=== PATIENT | male | born 1980 | race Caucasian/White ===

== ENCOUNTER 2017-08-31 21:34 | Emergency (ER) | payer BC ==
[2017-08-31] MEDS ORDERED: Sodium Chloride 0.9% 10 ML Syringe FLUSH PRN (21:49)
[2017-08-31] MEDS ORDERED: Ondansetron 4 MG/2 ML SDV IVPUSH ONE (22:05)
[2017-08-31] MEDS ORDERED: Pantoprazole 40 MG Vial IVPUSH ONE (22:05)
--- NOTE | 2017-08-31 22:10 | EDM.PDOC ---
ED HPI GENERAL MEDICAL PROBLEM - General Chief Complaint: General Stated Complaint: blood sugar concerns Time Seen by Provider: 08/31/17 21:36 Source of Information: Reports: Patient, RN, RN Notes Reviewed History Limitations: Reports: No Limitations - History of Present Illness INITIAL COMMENTS - FREE TEXT/NARRATIVE: Patient presents to the ED at [facility] with concerns of labile blood sugars. He states yesterday he started to feel nauseated and had several bouts of vomiting. He lasted vomited earlier today. He denies any headache of dizziness. He states he feels extreme "heartburn." Denies alcohol use. He has a history of drug abuse. Daily cigarette smoker. He states he is taking his insulins as directed but his blood sugars have ranged from 200's-400's in the last 24 hours. He states he is drinking a lot to keep hydrated. No abdominal pain. No focal neurological problems. He denies SOB or chest pain. Onset Date: 08/30/17 Generalized Pain Score (Numeric/FACES): 3 - Related Data Allergies Allergy/AdvReac Type Severity Reaction Status Date / Time cefaclor [From Ceclor] Allergy Other Verified 08/31/17 21:42 insulin detemir Allergy Itching Verified 05/05/17 00:02 [From Levemir] Penicillins Allergy Cannot Verified 05/05/17 00:02 Remember Home Meds: Home Meds Insulin Glarg,Human.Rec.Analog [LantUS Solostar] 30 units SUBCUT BEDTIME [History] Insulin Lispro [Humalog Kwikpen U-100] 10 - 12 unit SUBCUT TIDMEALS 04/16/17 [ History] Past Medical History HEENT History: Reports: Impaired Vision, Other (See Below) Other HEENT History: He wears glasses with no history of diabetic retinopathy Cardiovascular History: Reports: Heart Murmur, High Cholesterol, Other (See Below) Other Cardiovascular History: Hyperlipidemia currently diet controlled; previous history of unknown type of heart murmur secondary to previous illicit drug use Respiratory History: Reports: None Gastrointestinal History: Reports: Cholelithiasis, Gastritis, GERD, Other (See Below) Other Gastrointestinal History: Esophageal tear in 2001 secondary to illness and alcohol abuse with NG tube therapy and Port-A-Cath needed however no other surgical procedures Genitourinary History: Reports: Diabetic Nephropathy, Other (See Below) Other Genitourinary History: Proteinuria Musculoskeletal History: Reports: None Neurological History: Reports: None Psychiatric History: Reports: Addiction, Anxiety, Depression, Hallucinations, Psych Hospitalization(s), Other (See Below) Other Psychiatric History: Illicit drug abuse between ages 15 and 22 including cocaine, methamphetamine's, marijuana, etc. with additional alcohol abuse during those ages with previous inpatient treatment at age 22; previous medical therapy for anxiety depression disorder but no occasions or counseling at this time Endocrine/Metabolic History: Reports: Diabetes, Type I, IDDM, Other (See Below) Other Endocrine/Metabolic History: Type I IDDM initially diagnosed at age 7 Hematologic History: Reports: None Immunologic History: Reports: None Oncologic (Cancer) History: Reports: None Dermatologic History: Reports: Other (See Below) Other Dermatologic History: Acne vulgaris - Infectious Disease History Infectious Disease History: Reports: Chicken Pox, Mononucleosis - Past Surgical History Head Surgeries/Procedures: Reports: None HEENT Surgical History: Reports: None Cardiovascular Surgical History: Reports: None Respiratory Surgical History: Reports: None GI Surgical History: Reports: Cholecystectomy, EGD, Other (See Below) Other GI Surgeries/Procedures: Laparoscopic cholecystectomy in 2009 secondary to dysfunctional gallbladder from his diabetes; EGD secondary to esophageal tear in 2001 Male Surgical History: Reports: Circumcision, Other (See Below) Other Male Surgeries/Procedures: Circumcision as an infant Endocrine Surgical History: Reports: None Neurological Surgical History: Reports: None Musculoskeletal Surgical History: Reports: None Oncologic Surgical History: Reports: None Dermatological Surgical History: Reports: None Social & Family History - Tobacco Use Smoking Status *Q: Current Every Day Smoker Years of Tobacco use: 15 Packs/Tins Daily: 0.7 Second Hand Smoke Exposure: Yes - Caffeine Use Caffeine Use: Reports: Coffee (4-5 cups per day), Energy Drinks (1 can per week any). Denies: Soda, Tea - Alcohol Use Days Per Week of Alcohol Use: 0 (Previous history of alcohol abuse and treatment as above) Number of Drinks Per Day: 2 (Usually beer or mixed drinks) Total Drinks Per Week: 0 - Recreational Drug Use Recreational Drug Use: No Drug Use in Last 12 Months: Yes Recreational Drug Type: Reports: Amphetamines (Speed), Cocaine, Marijuana/ Hashish, Methamphetamine, Other (see below). Denies: Heroin, Inhalants (Glues, Solvents, Aerosols), LSD (Acid) Other Recreational Drug Type: Illicit drug use addiction and treatment as above with persistent marijuana use of one joint per day which he uses for his anxiety - Living Situation & Occupation Living situation: Reports: with Significant Other (With 2 children from this relationship), with Family Occupation: Employed ([employer]) ED ROS GENERAL - Review of Systems Review Of Systems: See Below Constitutional: Reports: Weakness, Fatigue. Denies: Fever, Chills Respiratory: Denies: Shortness of Breath, Cough Cardiovascular: Denies: Chest Pain, Palpitations Endocrine: Reports: Fatigue, High Glucose GI/Abdominal: Reports: Nausea, Vomiting. Denies: Abdominal Pain Skin: Reports: No Symptoms Neurological: Reports: No Symptoms. Denies: Dizziness, Headache ED EXAM, GENERAL - Physical Exam Exam: See Below Exam Limited By: No Limitations General Appearance: Alert, No Apparent Distress Respiratory/Chest: No Respiratory Distress, Lungs Clear, Normal Breath Sounds Cardiovascular: Normal Peripheral Pulses, Regular Rate, Rhythm Peripheral Pulses: 2+: Radial (L), Radial (R) GI/Abdominal: Normal Bowel Sounds, Soft, Non-Tender Extremities: Normal Inspection Neurological: Alert, Oriented Skin Exam: Warm, Dry, Intact, Normal Color EKG INTERPRETATION EKG Date: 08/31/17 Time: 21:53 Rhythm: NSR Rate (Beats/Min): 74 [place]: Normal P-Wave: Present QRS: Normal ST-T: Normal QT: Normal IN/PQ Interval: 0.15 Comparison: NA - No Prior EKG EKG Interpretation Comments: 1. Sinus Rhythm 2. Normal ECG Course - Vital Signs Last Recorded V/S: Last Vital Signs Temp 36.0 C 08/31/17 21:39 Pulse 99 08/31/17 21:39 Resp 16 08/31/17 21:39 BP 146/85 H 08/31/17 21:39 Pulse Ox 98 08/31/17 21:39 - Orders/Labs/Meds Orders: Active Orders 24 hr Category Date Time Status EKG 12 Lead [EKG Documentation Completion] [RC] STAT Care 08/31/17 21:46 Active B-HYDROXYBUTYRATE [REF] Stat Lab 08/31/17 22:02 Received CARBOXY-THC BY GC/MS Stat Lab 08/31/17 22:05 Received UA W/MICROSCOPIC [URIN] Stat Lab 08/31/17 21:55 Ordered Sodium Chloride 0.9% [Normal Saline] 2,000 ml Med 08/31/17 22:55 Active IV ONETIME Sodium Chloride 0.9% [Saline Flush] Med 08/31/17 21:49 Active 10 ml FLUSH ASDIRECTED PRN Peripheral IV Insertion Adult [OM.PC] Routine Oth 08/31/17 21:49 Ordered Medication Orders Sodium Chloride (Normal Saline) 2,000 mls @ 999 mls/hr IV ONETIME ONE Stop: 09/01/17 00:55 Last Admin: 08/31/17 23:00 Dose: 999 mls/hr Sodium Chloride (Saline Flush) 10 ml FLUSH ASDIRECTED PRN PRN Reason: Keep Vein Open Labs: Laboratory Tests 08/31/17 08/31/17 08/31/17 Range/Units 21:55 22:02 22:02 WBC 11.2 H (4.0-10.0) x10^3/uL RBC 4.48 L (4.5-6.0) x10^6/uL Hgb 14.3 (14.0-18.0) g/dL Hct 41.0 (40.0-52.0) % MCV 91.5 (78.0-93.0) fL MCH 31.9 (26.0-32.0) pg MCHC 34.9 (32.0-36.0) g/dL RDW Coeff of [place]vy 13.3 (10.0-15.0) % Plt Count 209 (130-400) x10^3/uL Neut % (Auto) 65.9 (50.0-80.0) % Lymph % (Auto) 20.6 L (25.0-50.0) % Mcleod % (Auto) 7.1 (2.0-11.0) % Eos % (Auto) 6.0 H (0.0-4.0) % Baso % (Auto) 0.4 (0.2-1.2) % VBG pH 7.37 (7.31-7.41) POC VBG pH (7.31-7.41) POC VBG pCO2 (41-51) POC VBG pO2 POC VBG HCO3 (23-28) POC VBG Total CO2 (24-29) POC VBG Base Excess ((-2) - 3) POC FiO2 POC Sodium (138-146) mmol/L Sodium (136-145) mmol/L POC Potassium (3.5-4.9) mmol/L Potassium (3.5-5.1) mmol/L POC Chloride (98-109) mmol/L Chloride (98-107) mmol/L Carbon Dioxide (21-32) mmol/L POC Total CO2 (24-29) mmol/L Anion Gap POC Anion Gap POC BUN (8-26) mg/dL BUN (7-18) mg/dL Creatinine (0.70-1.30) mg/dL POC Creatinine (0.6-1.3) mg/dL Est Cr Clr Drug Dosing Estimated GFR (MDRD) Glucose (74-106) mg/dL POC Glucose (70-105) mg/dL Hemoglobin A1c (4.5-6.2) % Lactic Acid (0.4-2.0) mmol/L Calcium (8.5-10.1) mg/dL Corrected Calcium (8.5-10.1) mg/dL Total Bilirubin (0.2-1.0) mg/dL AST (15-37) U/L ALT (16-63) U/L Alkaline Phosphatase (46-116) U/L POC Troponin I (0.00-0.08) ng/mL Total Protein (6.4-8.2) g/dL Albumin (3.4-5.0) g/dL Globulin Albumin/Globulin Ratio TSH, Ultra Sensitive (0.358-3.74) uIU/mL Urine Color Yellow (YELLOW) Urine Appearance Clear (CLEAR) Urine pH 5.5 (5.0-8.0) Ur Specific [place] >=1.030 Urine Protein >=300 H (NEGATIVE) mg/dL Urine Glucose (UA) 100 H (NEGATIVE) mg/dL Urine Ketones Negative (NEGATIVE) mg/dL Urine Occult Blood Negative (NEGATIVE) Urine Nitrite Negative (NEGATIVE) Urine Bilirubin Negative (NEGATIVE) Urine Urobilinogen 0.2 (0.2) EU/dL Ur Leukocyte Esterase Negative (NEGATIVE) Urine RBC 0-5 (NOT SEEN) /HPF Urine WBC 0-5 (NOT SEEN) /HPF Ur Squamous Epith Cells Not seen (NEGATIVE) /HPF Urine Bacteria Rare (NEGATIVE) /HPF Urine Mucus Rare H (NEGATIVE) /LPF Urine Opiates Screen (NEAGTIVE) Ur Buprenorphine Scrn (NEGATIVE) Ur Oxycodone Screen (NEGATIVE) Urine Methadone Screen (NEGATIVE) Ur Barbiturates Screen (NEGATIVE) Ur Tricyclics Screen (NEGATIVE) Ur Amphetamine Screen (NEGATIVE) U Methamphetamines Scrn (NEGATIVE) Urine MDMA Screen (NEGATIVE) U Benzodiazepines Scrn (NEGATIVE) U Cocaine Metab Screen (NEGATIVE) U Marijuana (THC) Screen (NEGATIVE) 08/31/17 08/31/17 08/31/17 Range/Units 22:02 22:02 22:02 WBC (4.0-10.0) x10^3/uL RBC (4.5-6.0) x10^6/uL Hgb (14.0-18.0) g/dL Hct (40.0-52.0) % MCV (78.0-93.0) fL MCH (26.0-32.0) pg MCHC (32.0-36.0) g/dL RDW Coeff of [place]vy (10.0-15.0) % Plt Count (130-400) x10^3/uL Neut % (Auto) (50.0-80.0) % Lymph % (Auto) (25.0-50.0) % Mcleod % (Auto) (2.0-11.0) % Eos % (Auto) (0.0-4.0) % Baso % (Auto) (0.2-1.2) % VBG pH (7.31-7.41) POC VBG pH (7.31-7.41) POC VBG pCO2 (41-51) POC VBG pO2 POC VBG HCO3 (23-28) POC VBG Total CO2 (24-29) POC VBG Base Excess ((-2) - 3) POC FiO2 POC Sodium (138-146) mmol/L Sodium 136 (136-145) mmol/L POC Potassium (3.5-4.9) mmol/L Potassium 4.2 (3.5-5.1) mmol/L POC Chloride (98-109) mmol/L Chloride 102 (98-107) mmol/L Carbon Dioxide 25 (21-32) mmol/L POC Total CO2 (24-29) mmol/L Anion Gap 13.2 POC Anion Gap POC BUN (8-26) mg/dL BUN 23 H (7-18) mg/dL Creatinine 1.0 (0.70-1.30) mg/dL POC Creatinine (0.6-1.3) mg/dL Est Cr Clr Drug Dosing TNP Estimated GFR (MDRD) > 60 Glucose 202 H (74-106) mg/dL POC Glucose (70-105) mg/dL Hemoglobin A1c 8.1 H (4.5-6.2) % Lactic Acid 0.7 (0.4-2.0) mmol/L Calcium 9.1 (8.5-10.1) mg/dL Corrected Calcium 9.58 (8.5-10.1) mg/dL Total Bilirubin 0.2 (0.2-1.0) mg/dL AST 20 (15-37) U/L ALT 24 (16-63) U/L Alkaline Phosphatase 69 (46-116) U/L POC Troponin I (0.00-0.08) ng/mL Total Protein 6.5 (6.4-8.2) g/dL Albumin 3.4 (3.4-5.0) g/dL Globulin 3.1 Albumin/Globulin Ratio 1.10 TSH, Ultra Sensitive 2.264 (0.358-3.74) uIU/mL Urine Color (YELLOW) Urine Appearance (CLEAR) Urine pH (5.0-8.0) Ur Specific [place] Urine Protein (NEGATIVE) mg/dL Urine Glucose (UA) (NEGATIVE) mg/dL Urine Ketones (NEGATIVE) mg/dL Urine Occult Blood (NEGATIVE) Urine Nitrite (NEGATIVE) Urine Bilirubin (NEGATIVE) Urine Urobilinogen (0.2) EU/dL Ur Leukocyte Esterase (NEGATIVE) Urine RBC (NOT SEEN) /HPF Urine WBC (NOT SEEN) /HPF Ur Squamous Epith Cells (NEGATIVE) /HPF Urine Bacteria (NEGATIVE) /HPF Urine Mucus (NEGATIVE) /LPF Urine Opiates Screen (NEAGTIVE) Ur Buprenorphine Scrn (NEGATIVE) Ur Oxycodone Screen (NEGATIVE) Urine Methadone Screen (NEGATIVE) Ur Barbiturates Screen (NEGATIVE) Ur Tricyclics Screen (NEGATIVE) Ur Amphetamine Screen (NEGATIVE) U Methamphetamines Scrn (NEGATIVE) Urine MDMA Screen (NEGATIVE) U Benzodiazepines Scrn (NEGATIVE) U Cocaine Metab Screen (NEGATIVE) U Marijuana (THC) Screen (NEGATIVE) 08/31/17 08/31/17 08/31/17 Range/Units 22:05 22:20 22:29 WBC (4.0-10.0) x10^3/uL RBC (4.5-6.0) x10^6/uL Hgb (14.0-18.0) g/dL Hct (40.0-52.0) % MCV (78.0-93.0) fL MCH (26.0-32.0) pg MCHC (32.0-36.0) g/dL RDW Coeff of [place] (10.0-15.0) % Plt Count (130-400) x10^3/uL Neut % (Auto) (50.0-80.0) % Lymph % (Auto) (25.0-50.0) % Mcleod % (Auto) (2.0-11.0) % Eos % (Auto) (0.0-4.0) % Baso % (Auto) (0.2-1.2) % VBG pH (7.31-7.41) POC VBG pH 7.37 (7.31-7.41) POC VBG pCO2 42 (41-51) POC VBG pO2 74 POC VBG HCO3 24 (23-28) POC VBG Total CO2 26 (24-29) POC VBG Base Excess -1 ((-2) - 3) POC FiO2 0.21 POC Sodium 134 L (138-146) mmol/L Sodium (136-145) mmol/L POC Potassium 4.0 (3.5-4.9) mmol/L Potassium (3.5-5.1) mmol/L POC Chloride 102 (98-109) mmol/L Chloride (98-107) mmol/L Carbon Dioxide (21-32) mmol/L POC Total CO2 23 L (24-29) mmol/L Anion Gap POC Anion Gap 14 POC BUN 24 (8-26) mg/dL BUN (7-18) mg/dL Creatinine (0.70-1.30) mg/dL POC Creatinine 0.9 (0.6-1.3) mg/dL Est Cr Clr Drug Dosing Estimated GFR (MDRD) Glucose (74-106) mg/dL POC Glucose 198 H (70-105) mg/dL Hemoglobin A1c (4.5-6.2) % Lactic Acid (0.4-2.0) mmol/L Calcium (8.5-10.1) mg/dL Corrected Calcium (8.5-10.1) mg/dL Total Bilirubin (0.2-1.0) mg/dL AST (15-37) U/L ALT (16-63) U/L Alkaline Phosphatase (46-116) U/L POC Troponin I (0.00-0.08) ng/mL Total Protein (6.4-8.2) g/dL Albumin (3.4-5.0) g/dL Globulin Albumin/Globulin Ratio TSH, Ultra Sensitive (0.358-3.74) uIU/mL Urine Color (YELLOW) Urine Appearance (CLEAR) Urine pH (5.0-8.0) Ur Specific [place] Urine Protein (NEGATIVE) mg/dL Urine Glucose (UA) (NEGATIVE) mg/dL Urine Ketones (NEGATIVE) mg/dL Urine Occult Blood (NEGATIVE) Urine Nitrite (NEGATIVE) Urine Bilirubin (NEGATIVE) Urine Urobilinogen (0.2) EU/dL Ur Leukocyte Esterase (NEGATIVE) Urine RBC (NOT SEEN) /HPF Urine WBC (NOT SEEN) /HPF Ur Squamous Epith Cells (NEGATIVE) /HPF Urine Bacteria (NEGATIVE) /HPF Urine Mucus (NEGATIVE) /LPF Urine Opiates Screen Negative (NEAGTIVE) Ur Buprenorphine Scrn Negative (NEGATIVE) Ur Oxycodone Screen Negative (NEGATIVE) Urine Methadone Screen Negative (NEGATIVE) Ur Barbiturates Screen Negative (NEGATIVE) Ur Tricyclics Screen Negative (NEGATIVE) Ur Amphetamine Screen Negative (NEGATIVE) U Methamphetamines Scrn Negative (NEGATIVE) Urine MDMA Screen Negative (NEGATIVE) U Benzodiazepines Scrn Negative (NEGATIVE) U Cocaine Metab Screen Negative (NEGATIVE) U Marijuana (THC) Screen Positive H (NEGATIVE) 08/31/17 Range/Units 22:34 WBC (4.0-10.0) x10^3/uL RBC (4.5-6.0) x10^6/uL Hgb (14.0-18.0) g/dL Hct (40.0-52.0) % MCV (78.0-93.0) fL MCH (26.0-32.0) pg MCHC (32.0-36.0) g/dL RDW Coeff of [place] (10.0-15.0) % Plt Count (130-400) x10^3/uL Neut % (Auto) (50.0-80.0) % Lymph % (Auto) (25.0-50.0) % [place] % (Auto) (2.0-11.0) % Eos % (Auto) (0.0-4.0) % Baso % (Auto) (0.2-1.2) % VBG pH (7.31-7.41) POC VBG pH (7.31-7.41) POC VBG pCO2 (41-51) POC VBG pO2 POC VBG HCO3 (23-28) POC VBG Total CO2 (24-29) POC VBG Base Excess ((-2) - 3) POC FiO2 POC Sodium (138-146) mmol/L Sodium (136-145) mmol/L POC Potassium (3.5-4.9) mmol/L Potassium (3.5-5.1) mmol/L POC Chloride (98-109) mmol/L Chloride (98-107) mmol/L Carbon Dioxide (21-32) mmol/L POC Total CO2 (24-29) mmol/L Anion Gap POC Anion Gap POC BUN (8-26) mg/dL BUN (7-18) mg/dL Creatinine (0.70-1.30) mg/dL POC Creatinine (0.6-1.3) mg/dL Est Cr Clr Drug Dosing Estimated GFR (MDRD) Glucose (74-106) mg/dL POC Glucose (70-105) mg/dL Hemoglobin A1c (4.5-6.2) % Lactic Acid (0.4-2.0) mmol/L Calcium (8.5-10.1) mg/dL Corrected Calcium (8.5-10.1) mg/dL Total Bilirubin (0.2-1.0) mg/dL AST (15-37) U/L ALT (16-63) U/L Alkaline Phosphatase (46-116) U/L POC Troponin I 0.00 (0.00-0.08) ng/mL Total Protein (6.4-8.2) g/dL Albumin (3.4-5.0) g/dL Globulin Albumin/Globulin Ratio TSH, Ultra Sensitive (0.358-3.74) uIU/mL Urine Color (YELLOW) Urine Appearance (CLEAR) Urine pH (5.0-8.0) Ur Specific [place] Urine Protein (NEGATIVE) mg/dL Urine Glucose (UA) (NEGATIVE) mg/dL Urine Ketones (NEGATIVE) mg/dL Urine Occult Blood (NEGATIVE) Urine Nitrite (NEGATIVE) Urine Bilirubin (NEGATIVE) Urine Urobilinogen (0.2) EU/dL Ur Leukocyte Esterase (NEGATIVE) Urine RBC (NOT SEEN) /HPF Urine WBC (NOT SEEN) /HPF Ur Squamous Epith Cells (NEGATIVE) /HPF Urine Bacteria (NEGATIVE) /HPF Urine Mucus (NEGATIVE) /LPF Urine Opiates Screen (NEAGTIVE) Ur Buprenorphine Scrn (NEGATIVE) Ur Oxycodone Screen (NEGATIVE) Urine Methadone Screen (NEGATIVE) Ur Barbiturates Screen (NEGATIVE) Ur Tricyclics Screen (NEGATIVE) Ur Amphetamine Screen (NEGATIVE) U Methamphetamines Scrn (NEGATIVE) Urine MDMA Screen (NEGATIVE) U Benzodiazepines Scrn (NEGATIVE) U Cocaine Metab Screen (NEGATIVE) U Marijuana (THC) Screen (NEGATIVE) Meds: Medications Generic Name Dose Route Start Last Admin Trade Name Freq PRN Reason Stop Dose Admin Sodium Chloride 2,000 mls @ 999 mls/hr 08/31/17 22:55 08/31/17 23:00 Normal Saline IV 09/01/17 00:55 999 mls/hr ONETIME ONE Administration Sodium Chloride 10 ml 08/31/17 21:49 Saline Flush FLUSH ASDIRECTED PRN Keep Vein Open Discontinued Medications Generic Name Dose Route Start Last Admin Trade Name Freq PRN Reason Stop Dose Admin Ondansetron HCl 4 mg 08/31/17 22:05 08/31/17 22:09 Zofran IVPUSH 08/31/17 22:06 4 mg ONETIME ONE Administration Pantoprazole Sodium 40 mg 08/31/17 22:05 08/31/17 22:11 Protonix Iv IVPUSH 08/31/17 22:06 40 mg ONETIME ONE Administration Departure - Departure Time of Disposition: 23:30 Disposition: Home, Self-Care 01 Condition: Good Clinical Impression: Elevated blood sugar Nausea & vomiting Qualifiers: Vomiting type: unspecified Vomiting Intractability: non-intractable Qualified Code(s): R11.2 - Nausea with vomiting, unspecified - Discharge Information Instructions: Nausea, Adult, Hyperglycemia Referrals: Sherly Gates VIDEO LIBRARY ASSISTANT [Primary Care Provider] - Forms: ED Department Discharge, ED Return to Work/School Form Additional Instructions: 1. Stay well hydrated and rest 2. No changes with your home medications is needed, continue the same doses 3. Take nausea medications as needed 4. See your Primary as symptoms warrant 5. Call us with any questions/concerns - Problem List Review Problem List Initiated/Reviewed/Updated: Yes - My Orders Last 24 Hours: My Active Orders 08/31/17 21:46 EKG 12 Lead [EKG Documentation Completion] [RC] STAT 08/31/17 21:49 Sodium Chloride 0.9% [Saline Flush] 10 ml FLUSH ASDIRECTED PRN Peripheral IV Insertion Adult [OM.PC] Routine 08/31/17 21:55 UA W/MICROSCOPIC [URIN] Stat 08/31/17 22:02 B-HYDROXYBUTYRATE [REF] Stat 08/31/17 22:05 CARBOXY-THC BY GC/MS Stat 08/31/17 22:55 Sodium Chloride 0.9% [Normal Saline] 2,000 ml IV ONETIME - Assessment/Plan Last 24 Hours: My Active Orders 08/31/17 21:46 EKG 12 Lead [EKG Documentation Completion] [RC] STAT 08/31/17 21:49 Sodium Chloride 0.9% [Saline Flush] 10 ml FLUSH ASDIRECTED PRN Peripheral IV Insertion Adult [OM.PC] Routine 08/31/17 21:55 UA W/MICROSCOPIC [URIN] Stat 08/31/17 22:02 B-HYDROXYBUTYRATE [REF] Stat 08/31/17 22:05 CARBOXY-THC BY GC/MS Stat 08/31/17 22:55 Sodium Chloride 0.9% [Normal Saline] 2,000 ml IV ONETIME Assessment:: Nausea and vomiting secondary to hyperglycemia Plan: Labs and tests discussed with patient. No acute emergency found. Recommend continuing same dosing with insulins without any changes. He needs to follow closely with his PCP. He needs to reschedule Endocrine appointment. Also recommend referral to DM educator. Patient verbalized understanding.
[2017-08-31 22:48] LABS: CHLORIDE,CL 102 mmol/L (98-107); SODIUM,NA 136 mmol/L (136-145)
[2017-08-31] MEDS ORDERED: Sodium Chloride 0.9% 2,000 ML IV ONE (22:55)
[2017-08-31] MEDS ORDERED: Take Home: Ondansetron 4 MG Tab.DIS, 2 Tab Pack PO ONE (23:33)
== END 2017-09-01 00:04 | disposition home or self-care (01) ==
LOC: VM.ED 21:34
DX: E10.21 Type 1 diabetes mellitus with diabetic nephropathy (principal); R11.2 Nausea with vomiting, unspecified; F17.210 Nicotine dependence, cigarettes, uncomplicated; E78.00 Pure hypercholesterolemia, unspecified; Z88.1 Allergy status to other antibiotic agents; Z88.8 Allergy status to other drugs, medicaments and biological substances; Z88.0 Allergy status to penicillin
CPT/HCPCS: 36415; 80047; 80053; 80305; 80349; 81001; 82010; 82800; 82803; 83036; 83605; 84443; 84484; 85025; 93005; 96361; 96374; 96375; 99285; C9113; J2405; J7030

== ENCOUNTER 2019-08-24 19:13 | Emergency (ER) | payer BC, MEDICAID ==
[2019-08-24 20:22] LABS: BARBITURATE SCREEN,URINE NEGATIVE (NEGATIVE); BENZODIAZEPINES SCREEN,URINE NEGATIVE (NEGATIVE); EDDP,URINE SCREEN NEGATIVE (NEGATIVE); METHAMPHETAMINE SCREEN, URINE NEGATIVE (NEGATIVE); TCA SCREEN,URINE NEGATIVE (NEGATIVE); THC SCREEN,URINE 50 NG/ML POSITIVE (NEGATIVE)
[2019-08-24 20:39] LABS: CHLORIDE,CL 104 mmol/L (98-107); SODIUM,NA 138 mmol/L (136-145)
[2019-08-24 20:41] LABS: ANION GAP 12.4 mmol/L (10-20)
[2019-08-24] MEDS ORDERED: Furosemide 40 MG/4 ML VIAL IM ONE (20:58)
--- NOTE | 2019-08-25 06:39 | EDM.PDOC ---
ED HPI GENERAL MEDICAL PROBLEM - General Chief Complaint: General Stated Complaint: SWOLLEN LEGS Time Seen by Provider: 08/24/19 19:30 Source of Information: Reports: Patient History Limitations: Reports: No Limitations - History of Present Illness INITIAL COMMENTS - FREE TEXT/NARRATIVE: Pt. presents to ER with complaints of 30# weight gain, edema to legs and abdomen , and dark colored urine. Pt. states that the symptoms started about a week ago but is much more pronounced in the past several days. Pt. was recently treated for strep pharyngitis with azithromycin. He states that the symptoms of pharyngitis have improved. Pt. denies any fever or chills. Pt. has a history of type 1 DM. He states that he has been taking his insulin. He denies any chest pain but complains of mild shortness of breath. Pt. has a history of hypertension but is not currently taking his lisinopril for this. He states that he stopped taking this a year ago, because he felt he was taking too many medications. Denies any nausea or vomiting. Complains of very mild abdominal discomfort consistent with increased edema in this abdominal area. He complains that he has trouble putting his shoes on, and complains of discomfort with bending his knees. Onset Date: 08/18/19 Duration: Getting Worse Associated Symptoms: Denies: Fever/Chills, Headaches, Malaise, Nausea/Vomiting, Rash, Weakness Generalized Pain Score (Numeric/FACES): 5 - Related Data Allergies Allergy/AdvReac Type Severity Reaction Status Date / Time amoxicillin Allergy unknown Verified 08/24/19 20:45 cefaclor [From Ceclor] Allergy Other Verified 08/24/19 20:45 insulin aspart Allergy Other Verified 08/24/19 20:46 [From Novolog U-100 Insulin aspart] insulin detemir Allergy Itching Verified 08/24/19 20:45 [From Levemir] Penicillins Allergy Cannot Verified 08/24/19 20:45 Remember Home Meds: Home Meds Insulin Lispro [Humalog Kwikpen U-100] 10 - 12 unit SUBCUT TIDMEALS 04/16/17 [ History] Non-Formulary Medication [NF Drug] 27 units SUBCUT DAILY 04/13/18 [History] Sertraline [Zoloft] 1 tab PO DAILY 10/24/18 [History] Past Medical History HEENT History: Reports: Impaired Vision, Other (See Below) Other HEENT History: He wears glasses with no history of diabetic retinopathy. Nasal fracture 2 last in 2012. Cardiovascular History: Reports: Heart Murmur, High Cholesterol, Hypertension, Other (See Below) Other Cardiovascular History: Hyperlipidemia currently diet controlled; previous history of unknown type of heart murmur secondary to previous illicit drug use. Coincident Hypertension due to Diabetes. Respiratory History: Reports: Intubation, Previous, Other (See Below) Other Respiratory History: Pulmonary obstructive disease by previous chest x- rays with no current treatment Gastrointestinal History: Reports: Cholelithiasis, Gastritis, GERD, GI Bleed, Other (See Below) Other Gastrointestinal History: Esophageal tear in 2001 secondary to illness and alcohol abuse with NG tube therapy and Port-A-Cath needed however no other surgical procedures; history of elevated LFTs possibly secondary to fatty liver. Genitourinary History: Reports: Chronic Renal Insuffiency, Diabetic Nephropathy , Other (See Below) Other Genitourinary History: Proteinuria Musculoskeletal History: Reports: Fracture, Other (See Below) Other Musculoskeletal History: Nasal fractures as above. Neurological History: Reports: Seizure, Other (See Below) Other Neuro History: Apparent unknown type of seizure activity with hypoglycemic episodes. 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 with additional alcohol abuse during those ages with previous inpatient treatment at age 22; note current daily use of marijuana for his nausea? previous medical therapy for anxiety depression disorder but no current counseling at this time and only recent initiation of low-dose Zoloft therapy. 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 Hyponatremia. Hematologic History: Reports: None Immunologic History: Reports: None Oncologic (Cancer) History: Reports: None Dermatologic History: Reports: Other (See Below) Other Dermatologic History: Acne vulgarissevere including scarring - Infectious Disease History Infectious Disease History: Reports: Chicken Pox, Mononucleosis. Denies: C- Difficile, Measles, Meningitis, MRSA, Mumps, Rheumatic Fever, Rubella, Scarlet Fever, Shingles, TB, VRE - Past Surgical History Head Surgeries/Procedures: Reports: None HEENT Surgical History: Reports: None Cardiovascular Surgical History: Reports: None Respiratory Surgical History: Reports: None GI Surgical History: Reports: Cholecystectomy, EGD, Other (See Below) Other GI Surgeries/Procedures: Laparoscopic cholecystectomy in 2009 secondary to dysfunctional gallbladder from his diabetes; EGD secondary to esophageal tear in 2001 Male Surgical History: Reports: Circumcision, Other (See Below) Other Male Surgeries/Procedures: Circumcision as an infant Endocrine Surgical History: Reports: None Neurological Surgical History: Reports: None Musculoskeletal Surgical History: Reports: None Oncologic Surgical History: Reports: None Dermatological Surgical History: Reports: None - Past Imaging History Past Imaging History: Reports: CAT Scan (CT of the head on 04/13/18.) Social & Family History - Tobacco Use Smoking Status *Q: Current Every Day Smoker Years of Tobacco use: 15 Packs/Tins Daily: 0.5 - Caffeine Use Caffeine Use: Reports: Coffee (3 cups per day). Denies: Energy Drinks, Soda, Tea - Recreational Drug Use Recreational Drug Use: Yes Recreational Drug Type: Reports: Marijuana/Hashish Recreational Drug Use Frequency: Weekly - Living Situation & Occupation Living situation: Reports: with Family (Son and daughter) Occupation: Employed ([employer]) ED ROS GENERAL - Review of Systems Review Of Systems: See Below Constitutional: Reports: No Symptoms HEENT: Reports: No Symptoms Respiratory: Reports: Shortness of Breath Cardiovascular: Reports: Edema Endocrine: Reports: No Symptoms GI/Abdominal: Reports: No Symptoms : Reports: No Symptoms Musculoskeletal: Reports: No Symptoms Skin: Reports: No Symptoms Neurological: Reports: No Symptoms Psychiatric: Reports: No Symptoms Hematologic/Lymphatic: Reports: No Symptoms Immunologic: Reports: No Symptoms ED EXAM, GENERAL - Physical Exam Exam: See Below Exam Limited By: No Limitations General Appearance: Alert, WD/WN, No Apparent Distress Eye Exam: Bilateral Eye: EOMI, PERRL Throat/Mouth: Normal Lips, Normal Teeth, Normal Gums, Normal Oropharynx, Normal Voice, No Airway Compromise Head: Atraumatic, Normocephalic Neck: Normal Inspection, Supple, Non-Tender, Full Range of Motion Respiratory/Chest: No Respiratory Distress, Lungs Clear, Normal Breath Sounds, No Accessory Muscle Use, Chest Non-Tender Cardiovascular: Normal Peripheral Pulses, Regular Rate, Rhythm, No Gallop, No JVD, No Murmur, Other (2+ edema to lower extremities/abdomen) Peripheral Pulses: 4+: Brachial (L) GI/Abdominal: Normal Bowel Sounds, Soft, Non-Tender, No Distention, No Mass, Pelvis Stable (Male) Exam: Deferred Rectal (Males) Exam: Deferred Back Exam: Normal Inspection, Full Range of Motion Extremities: Normal Inspection, Normal Range of Motion, Non-Tender, No Pedal Edema, Normal Capillary Refill Neurological: Alert, Oriented, CN II-XII Intact, Normal Cognition, Normal Gait, Normal Reflexes, No Motor/Sensory Deficits Psychiatric: Normal Affect, Normal Mood Skin Exam: Warm, Dry, Intact, Normal Color, No Rash Lymphatic: No Adenopathy EKG INTERPRETATION Rhythm: NSR [place]: Normal P-Wave: Present QRS: Normal ST-T: Normal QT: Normal Course - Vital Signs Last Recorded V/S: Last Vital Signs Temp 36.3 C 08/24/19 19:55 Pulse 63 08/24/19 20:38 Resp 16 08/24/19 20:38 BP 174/100 H 08/24/19 20:38 Pulse Ox 97 08/24/19 20:38 - Orders/Labs/Meds Orders: Active Orders 24 hr Category Date Time Status EKG Documentation Completion [RC] STAT Care 08/24/19 19:32 Active Chest 2V [CR] Stat Exams 08/24/19 19:32 Stop Req Chest 2V [CR] Stat Exams 08/24/19 19:32 Taken Labs: Laboratory Tests 08/24/19 08/24/19 08/24/19 Range/Units 20:03 20:03 20:03 WBC 10.1 H (4.0-10.0) x10^3/uL RBC 3.81 L (4.5-6.0) x10^6/uL Hgb 11.7 L D (14.0-18.0) g/dL Hct 33.9 L (40.0-52.0) % MCV 89.0 (78.0-93.0) fL MCH 30.7 (26.0-32.0) pg MCHC 34.5 (32.0-36.0) g/dL RDW Coeff of [place] 13.0 (10.0-15.0) % Plt Count 315 D (130-400) x10^3/uL Neut % (Auto) 69.6 (50.0-80.0) % Lymph % (Auto) 17.8 L (25.0-50.0) % Clare % (Auto) 7.9 (2.0-11.0) % Eos % (Auto) 3.8 (0.0-4.0) % Baso % (Auto) 0.9 (0.2-1.2) % PT 9.5 L (10.0-12.8) SEC INR 0.8 L (2.0-3.5) Sodium 138 (136-145) mmol/L Potassium 4.4 (3.5-5.1) mmol/L Chloride 104 (98-107) mmol/L Carbon Dioxide 26 (21-32) mmol/L Anion Gap 12.4 (10-20) mmol/L BUN 58 H D (7-18) mg/dL Creatinine 1.8 H (0.70-1.30) mg/dL Est Cr Clr Drug Dosing 54.89 mL/min Estimated GFR (MDRD) 43 Glucose 180 H (74-106) mg/dL Calcium 8.1 L (8.5-10.1) mg/dL Corrected Calcium 9.62 (8.5-10.1) mg/dL Total Bilirubin 0.2 (0.2-1.0) mg/dL AST 24 (15-37) U/L ALT 24 (16-63) U/L Alkaline Phosphatase 112 (46-116) U/L Troponin I < 0.017 (<=0.056) ng/mL C-Reactive Protein 0.5 (<=0.9) mg/dL NT-Pro-B Natriuret Pep 1587 H (<=125) pg/mL Total Protein 5.8 L (6.4-8.2) g/dL Albumin 2.1 L (3.4-5.0) g/dL Globulin 3.7 Albumin/Globulin Ratio 0.57 TSH, Ultra Sensitive 3.016 (0.358-3.74) uIU/mL Urine Color (YELLOW) Urine Appearance (CLEAR) Urine pH (5.0-8.0) Ur Specific [place] Urine Protein (NEGATIVE) mg/dL Urine Glucose (UA) (NEGATIVE) mg/dL Urine Ketones (NEGATIVE) mg/dL Urine Occult Blood (NEGATIVE) Urine Nitrite (NEGATIVE) Urine Bilirubin (NEGATIVE) Urine Urobilinogen (0.2) EU/dL Ur Leukocyte Esterase (NEGATIVE) U Hyaline Cast (Auto) Urine RBC (NOT SEEN) /HPF Urine WBC (NOT SEEN) /HPF Ur Squamous Epith Cells (NEGATIVE) /HPF Ur Renal Epithelial Cell (NEGATIVE) /HPF Amorphous Sediment Urine Bacteria (NEGATIVE) /HPF Granular Casts (Auto) Urine Mucus (NEGATIVE) /LPF Ur Yeast w Hyphae Urine Yeast (Budding) Urine Opiates Screen (NEAGTIVE) Ur Buprenorphine Scrn (NEGATIVE) Ur Oxycodone Screen (NEGATIVE) Ur EDDP (Meth Metab) (NEGATIVE) Urine Methadone Screen (NEGATIVE) Ur Barbiturates Screen (NEGATIVE) Ur Tricyclics Screen (NEGATIVE) Ur Phencyclidine Scrn (NEGATIVE) Ur Amphetamine Screen (NEGATIVE) U Methamphetamines Scrn (NEGATIVE) Urine MDMA Screen (NEGATIVE) U Benzodiazepines Scrn (NEGATIVE) U Cocaine Metab Screen (NEGATIVE) U Marijuana (THC) Screen (NEGATIVE) 08/24/19 08/24/19 Range/Units 20:10 20:10 WBC (4.0-10.0) x10^3/uL RBC (4.5-6.0) x10^6/uL Hgb (14.0-18.0) g/dL Hct (40.0-52.0) % MCV (78.0-93.0) fL MCH (26.0-32.0) pg MCHC (32.0-36.0) g/dL RDW Coeff of [place] (10.0-15.0) % Plt Count (130-400) x10^3/uL Neut % (Auto) (50.0-80.0) % Lymph % (Auto) (25.0-50.0) % Clare % (Auto) (2.0-11.0) % Eos % (Auto) (0.0-4.0) % Baso % (Auto) (0.2-1.2) % PT (10.0-12.8) SEC INR (2.0-3.5) Sodium (136-145) mmol/L Potassium (3.5-5.1) mmol/L Chloride (98-107) mmol/L Carbon Dioxide (21-32) mmol/L Anion Gap (10-20) mmol/L BUN (7-18) mg/dL Creatinine (0.70-1.30) mg/dL Est Cr Clr Drug Dosing mL/min Estimated GFR (MDRD) Glucose (74-106) mg/dL Calcium (8.5-10.1) mg/dL Corrected Calcium (8.5-10.1) mg/dL Total Bilirubin (0.2-1.0) mg/dL AST (15-37) U/L ALT (16-63) U/L Alkaline Phosphatase (46-116) U/L Troponin I (<=0.056) ng/mL C-Reactive Protein (<=0.9) mg/dL NT-Pro-B Natriuret Pep (<=125) pg/mL Total Protein (6.4-8.2) g/dL Albumin (3.4-5.0) g/dL Globulin Albumin/Globulin Ratio TSH, Ultra Sensitive (0.358-3.74) uIU/mL Urine Color Yellow (YELLOW) Urine Appearance Turbid H (CLEAR) Urine pH 5.0 (5.0-8.0) Ur Specific [place] 1.025 Urine Protein >=300 H (NEGATIVE) mg/dL Urine Glucose (UA) Negative (NEGATIVE) mg/dL Urine Ketones Negative (NEGATIVE) mg/dL Urine Occult Blood Moderate H (NEGATIVE) Urine Nitrite Negative (NEGATIVE) Urine Bilirubin Negative (NEGATIVE) Urine Urobilinogen 0.2 (0.2) EU/dL Ur Leukocyte Esterase Negative (NEGATIVE) U Hyaline Cast (Auto) Few Urine RBC 20-30 H (NOT SEEN) /HPF Urine WBC 30-40 H (NOT SEEN) /HPF Ur Squamous Epith Cells Occasional H (NEGATIVE) /HPF Ur Renal Epithelial Cell Occasional H (NEGATIVE) /HPF Amorphous Sediment Many Urine Bacteria Moderate H (NEGATIVE) /HPF Granular Casts (Auto) Moderate Urine Mucus Moderate H (NEGATIVE) /LPF Ur Yeast w Hyphae Few Urine Yeast (Budding) Few Urine Opiates Screen Negative (NEAGTIVE) Ur Buprenorphine Scrn Negative (NEGATIVE) Ur Oxycodone Screen Negative (NEGATIVE) Ur EDDP (Meth Metab) Negative (NEGATIVE) Urine Methadone Screen Negative (NEGATIVE) Ur Barbiturates Screen Negative (NEGATIVE) Ur Tricyclics Screen Negative (NEGATIVE) Ur Phencyclidine Scrn Negative (NEGATIVE) Ur Amphetamine Screen Negative (NEGATIVE) U Methamphetamines Scrn Negative (NEGATIVE) Urine MDMA Screen Negative (NEGATIVE) U Benzodiazepines Scrn Negative (NEGATIVE) U Cocaine Metab Screen Negative (NEGATIVE) U Marijuana (THC) Screen Positive H (NEGATIVE) Meds: Medications Discontinued Medications Generic Name Dose Route Start Last Admin Trade Name Freq PRN Reason Stop Dose Admin Furosemide 40 mg 08/24/19 20:58 08/24/19 21:06 Lasix IM 08/24/19 20:59 40 mg ONETIME ONE Administration - Radiology Interpretation Free Text/Narrative:: mild atelectasis/pleural effusion to lung bases. Departure - Departure Time of Disposition: 21:18 Disposition: Home, Self-Care 01 Clinical Impression: Post-streptococcal glomerulonephritis - Discharge Information Instructions: Furosemide tablets, Hypertension, Adult Referrals: Sherly Gates [employer] [Primary Care Provider] - Forms: ED Department Discharge Additional Instructions: I spoke with Dr. Huynh, director broadcast at [facility] in [place]. He advised outpatient follow-up with your PCP in the next several days to monitor your kidney function and electrolytes. Lasix 40mg once daily. Return to ER if you have any shortness of breath, chest pain, or lightheadedness. Sepsis Event Note - Evaluation Sepsis Screening Result: No Definite Risk - Focused Exam Vital Signs: Vital Signs Temp Pulse Resp BP Pulse Ox 08/24/19 20:38 63 16 174/100 H 97 08/24/19 19:55 36.3 C 74 16 180/114 H 98 Date Exam was Performed: 08/25/19 Time Exam was Performed: 06:33 - My Orders Last 24 Hours: My Active Orders 08/24/19 19:32 EKG Documentation Completion [RC] STAT Chest 2V [CR] Stat Chest 2V [CR] Stat - Assessment/Plan Last 24 Hours: My Active Orders 08/24/19 19:32 EKG Documentation Completion [RC] STAT Chest 2V [CR] Stat Chest 2V [CR] Stat Plan: Discussed case with Dr. Huynh, director broadcast at [facility]. He advised that the patient could be discharged on diuretics. Pt. was given lasix 40mg IM. Will also start him on oral lasix 40mg once daily as well. He needs to follow-up closely with his PCP and if not improving, with nephrology. Return to ER if chest pain, increased shortness of breath, nausea, or vomiting, or decreased urine output.
--- NOTE | 2019-08-25 07:54 | CR ---
[id number] RAD/RAD Chest PA And Lateral EXAM: RAD Chest PA And Lateral CLINICAL DATA: EDEMA COMPARISON: CORRELATION IS MADE WITH THE EXAM OF MAY 04, 2017 FINDINGS: There are small bilateral effusions The lungs otherwise are clear The cardiac silhouette is stable IMPRESSION: SMALL BILATERAL PLEURAL EFFUSIONS Lev Osorio MD 08/25/19 0752 Thank you for allowing us to participate in the care of your patient.
== END 2019-08-24 21:18 | disposition home or self-care (01) ==
LOC: VM.ED 19:13
DX: N05.9 Unspecified nephritic syndrome with unspecified morphologic changes (principal); R63.5 Abnormal weight gain; F17.210 Nicotine dependence, cigarettes, uncomplicated; E10.9 Type 1 diabetes mellitus without complications; F41.9 Anxiety disorder, unspecified; F32.9 Major depressive disorder, single episode, unspecified; I10 Essential (primary) hypertension; E78.00 Pure hypercholesterolemia, unspecified; Z79.4 Long term (current) use of insulin; Z79.899 Other long term (current) drug therapy; Z88.1 Allergy status to other antibiotic agents; Z88.0 Allergy status to penicillin; Z68.25 Body mass index [BMI] 25.0-25.9, adult
CPT/HCPCS: 36415; 71046; 80053; 80305; 81001; 83880; 84443; 84484; 85025; 85610; 86140; 93005; 96372; 99284; J1940

== ENCOUNTER 2019-08-27 18:02 | Emergency (ER) | payer MEDICAID ==
[2019-08-27] MEDS ORDERED: Sodium Chloride 0.9% 10 ML Syringe FLUSH PRN (18:54)
--- NOTE | 2019-08-27 19:04 | EDM.PDOC ---
ED HPI GENERAL MEDICAL PROBLEM - General Chief Complaint: Cardiovascular Problem Stated Complaint: FLUID BUILDUP Time Seen by Provider: 08/27/19 18:40 Source of Information: Reports: Patient History Limitations: Reports: No Limitations - History of Present Illness INITIAL COMMENTS - FREE TEXT/NARRATIVE: Patient [facility] for further evaluation of edema and weight gain. This patient is a rather young poorly controlled diabetic who has had some chronic kidney disease. He has not seen a professor of theater in 13 years. He has been taking his insulin although he has been using a family members Lantus instead of his prescribed medication. He has had a 34 pound weight gain in the last 2 weeks. He was seen in the emergency department over the weekend and was given some Lasix IM and sent home with 40 mg daily and rechecked in the clinic today. He related that initially he did feel somewhat better after the injection of the Lasix although his edema has gotten worse. He has some shortness of breath when he lays down primarily when he is sleeping not when he is awake. He has a little bit of increased exercise intolerance because he become short of breath with physical activity. He has had no wheezing cough or congestion. No fever no chills. The edema continues to get worse and his legs are very heavy tight and getting tender. The edema has extended all the way up to his waist and is starting to involve his groin. Notes edema to his face. He was a pretty heavy drinker in his 20s and quit drinking a couple of months ago. He has no previous diagnosis of cirrhosis. He has had no chest pain palpitations or syncope. He denies any history of heart attack. No cough or congestion. No weakness dizziness lightheadedness. No abdominal pain nausea or vomiting. No hematuria dysuria or urinary frequency. Feet and Legs Pain Score (Numeric/FACES): 3 - Related Data Allergies Allergy/AdvReac Type Severity Reaction Status Date / Time amoxicillin Allergy unknown Verified 08/24/19 20:45 cefaclor [From Ceclor] Allergy Other Verified 08/24/19 20:45 insulin aspart Allergy Other Verified 08/24/19 20:46 [From Novolog U-100 Insulin aspart] insulin detemir Allergy Itching Verified 08/24/19 20:45 [From Levemir] Penicillins Allergy Cannot Verified 08/24/19 20:45 Remember Home Meds: Home Meds Insulin Lispro [Humalog Kwikpen U-100] 10 - 12 unit SUBCUT TIDMEALS 04/16/17 [ History] Non-Formulary Medication [NF Drug] 27 units SUBCUT DAILY 04/13/18 [History] Sertraline [Zoloft] 1 tab PO DAILY 10/24/18 [History] Furosemide [Lasix] 40 mg PO BID #20 tab 08/27/19 [Rx] amLODIPine [Norvasc] 5 mg PO DAILY #30 tab 08/27/19 [Rx] Past Medical History HEENT History: Reports: Impaired Vision, Other (See Below) Other HEENT History: He wears glasses with no history of diabetic retinopathy. Nasal fracture 2 last in 2012. Cardiovascular History: Reports: Heart Murmur, High Cholesterol, Hypertension, Other (See Below) Other Cardiovascular History: Hyperlipidemia currently diet controlled; previous history of unknown type of heart murmur secondary to previous illicit drug use. Coincident Hypertension due to Diabetes. Respiratory History: Reports: Intubation, Previous, Other (See Below) Other Respiratory History: Pulmonary obstructive disease by previous chest x- rays with no current treatment Gastrointestinal History: Reports: Cholelithiasis, Gastritis, GERD, GI Bleed, Other (See Below) Other Gastrointestinal History: Esophageal tear in 2001 secondary to illness and alcohol abuse with NG tube therapy and Port-A-Cath needed however no other surgical procedures; history of elevated LFTs possibly secondary to fatty liver. Genitourinary History: Reports: Chronic Renal Insuffiency, Diabetic Nephropathy , Other (See Below) Other Genitourinary History: Proteinuria Musculoskeletal History: Reports: Fracture, Other (See Below) Other Musculoskeletal History: Nasal fractures as above. Neurological History: Reports: Seizure, Other (See Below) Other Neuro History: Apparent unknown type of seizure activity with hypoglycemic episodes. 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 with additional alcohol abuse during those ages with previous inpatient treatment at age 22; note current daily use of marijuana for his nausea? previous medical therapy for anxiety depression disorder but no current counseling at this time and only recent initiation of low-dose Zoloft therapy. 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 Hyponatremia. Hematologic History: Reports: None Immunologic History: Reports: None Oncologic (Cancer) History: Reports: None Dermatologic History: Reports: Other (See Below) Other Dermatologic History: Acne vulgarissevere including scarring - Infectious Disease History Infectious Disease History: Reports: Chicken Pox, Mononucleosis. Denies: C- Difficile, Measles, Meningitis, MRSA, Mumps, Rheumatic Fever, Rubella, Scarlet Fever, Shingles, TB, VRE - Past Surgical History Head Surgeries/Procedures: Reports: None HEENT Surgical History: Reports: None Cardiovascular Surgical History: Reports: None Respiratory Surgical History: Reports: None GI Surgical History: Reports: Cholecystectomy, EGD, Other (See Below) Other GI Surgeries/Procedures: Laparoscopic cholecystectomy in 2009 secondary to dysfunctional gallbladder from his diabetes; EGD secondary to esophageal tear in 2001 Male Surgical History: Reports: Circumcision, Other (See Below) Other Male Surgeries/Procedures: Circumcision as an Endocrine Surgical History: Reports: None Neurological Surgical History: Reports: None Musculoskeletal Surgical History: Reports: None Oncologic Surgical History: Reports: None Dermatological Surgical History: Reports: None - Past Imaging History Past Imaging History: Reports: CAT Scan (CT of the head on 04/13/18.) Social & Family History - Caffeine Use Caffeine Use: Reports: Coffee (3 cups per day). Denies: Energy Drinks, Soda, Tea - Living Situation & Occupation Living situation: Reports: with Family (Son and daughter) Occupation: Employed ([employer]) ED ROS GENERAL - Review of Systems Review Of Systems: Comprehensive ROS is negative, except as noted in HPI. ED EXAM, GENERAL - Physical Exam Exam: See Below Exam Limited By: No Limitations General Appearance: Alert, WD/WN Eye Exam: Bilateral Eye: EOMI Ears: Normal External Exam, Normal Canal Nose: Normal Inspection, Normal Mucosa Throat/Mouth: Normal Inspection, Normal Lips, Normal Oropharynx Head: Atraumatic, Normocephalic Neck: Normal Inspection, Supple, Non-Tender. No: Carotid Bruit Respiratory/Chest: No Respiratory Distress, Lungs Clear, Normal Breath Sounds, No Accessory Muscle Use Cardiovascular: Normal Peripheral Pulses, Regular Rate, Rhythm, No JVD, No Murmur Peripheral Pulses: 2+: Radial (L), Radial (R), Posterior Tibial (L), Posterior Tibial (R), Dorsalis Pedis (L), Dorsalis Pedis (R) GI/Abdominal: Normal Bowel Sounds, Soft, Non-Tender, No Organomegaly, Other (No peristaltic wave to the abd with concerns of ascites. NO edema to the abd. ). No: Distended (Male) Exam: Deferred Rectal (Males) Exam: Deferred Back Exam: Normal Inspection Extremities: Pedal Edema (He has impressive 3+ edema up to his knees and 1+ up to his waist line. No edema to the abd. ). No: Normal Inspection (HIs feet are very tight and edematous. ) Neurological: Alert, Oriented, Normal Cognition, No Motor/Sensory Deficits Psychiatric: Normal Affect, Normal Mood Skin Exam: Warm, Dry, Intact, Normal Color Lymphatic: No Adenopathy EKG INTERPRETATION EKG Date: 08/27/19 Time: 19:02 Rhythm: NSR Rate (Beats/Min): 60 [place]: Normal P-Wave: Present QRS: Normal ST-T: Normal QT: Normal Comparison: No Change Course - Vital Signs Last Recorded V/S: Last Vital Signs Temp 37.0 C 08/27/19 19:13 Pulse 67 08/27/19 21:11 Resp 16 08/27/19 21:11 BP 174/90 H 08/27/19 21:11 Pulse Ox 98 08/27/19 19:13 - Orders/Labs/Meds Orders: Active Orders 24 hr Category Date Time Status EKG Documentation Completion [RC] STAT Care 08/27/19 18:52 Active Peripheral IV Insertion Adult [OM.PC] Stat Oth 08/27/19 18:52 Ordered Labs: Laboratory Tests 08/27/19 08/27/19 08/27/19 Range/Units 18:35 18:58 18:58 Sodium 142 (136-145) mmol/L Potassium 4.3 (3.5-5.1) mmol/L Chloride 105 (98-107) mmol/L Carbon Dioxide 28 (21-32) mmol/L Anion Gap 13.3 (10-20) mmol/L BUN 49 H (7-18) mg/dL Creatinine 1.7 H (0.70-1.30) mg/dL Est Cr Clr Drug Dosing TNP Estimated GFR (MDRD) 46 Glucose 59 L (74-106) mg/dL Calcium 8.6 (8.5-10.1) mg/dL GGT (9-64) U/L Ammonia 33 (6-47) umol/L Troponin I < 0.017 (<=0.056) ng/mL Specimen Appearance Sl. turbid (CLEAR) Urine Color Yellow (YELLOW) Urine Appearance Slightly cloudy H (CLEAR) Urine pH 5.0 (5.0-8.0) Ur Specific [place] 1.020 Urine Protein >=300 H (NEGATIVE) mg/dL Urine Glucose (UA) Negative (NEGATIVE) mg/dL Urine Ketones Negative (NEGATIVE) mg/dL Urine Occult Blood Moderate H (NEGATIVE) Urine Nitrite Negative (NEGATIVE) Urine Bilirubin Negative (NEGATIVE) Urine Urobilinogen 0.2 (0.2) EU/dL Ur Leukocyte Esterase Negative (NEGATIVE) U Hyaline Cast (Auto) Few Urine RBC 30-40 H (NOT SEEN) /HPF Urine WBC 0-5 (NOT SEEN) /HPF Ur Squamous Epith Cells Rare (NEGATIVE) /HPF Amorphous Sediment Occasional Urine Bacteria Rare (NEGATIVE) /HPF Urine Mucus Few H (NEGATIVE) /LPF 08/27/19 Range/Units 18:58 Sodium (136-145) mmol/L Potassium (3.5-5.1) mmol/L Chloride (98-107) mmol/L Carbon Dioxide (21-32) mmol/L Anion Gap (10-20) mmol/L BUN (7-18) mg/dL Creatinine (0.70-1.30) mg/dL Est Cr Clr Drug Dosing Estimated GFR (MDRD) Glucose (74-106) mg/dL Calcium (8.5-10.1) mg/dL GGT 58 (9-64) U/L Ammonia (6-47) umol/L Troponin I (<=0.056) ng/mL Specimen Appearance (CLEAR) Urine Color (YELLOW) Urine Appearance (CLEAR) Urine pH (5.0-8.0) Ur Specific [place] Urine Protein (NEGATIVE) mg/dL Urine Glucose (UA) (NEGATIVE) mg/dL Urine Ketones (NEGATIVE) mg/dL Urine Occult Blood (NEGATIVE) Urine Nitrite (NEGATIVE) Urine Bilirubin (NEGATIVE) Urine Urobilinogen (0.2) EU/dL Ur Leukocyte Esterase (NEGATIVE) U Hyaline Cast (Auto) Urine RBC (NOT SEEN) /HPF Urine WBC (NOT SEEN) /HPF Ur Squamous Epith Cells (NEGATIVE) /HPF Amorphous Sediment Urine Bacteria (NEGATIVE) /HPF Urine Mucus (NEGATIVE) /LPF Labs from [facility] Today. CBC with a WBC 11.6, hemoglobin 12.2, platelet 394. proBNP 1781. AST 24 ALT 27, alkaline phosphatase 120, T bili 0.2. Creatinine 1.8 BUN 51 glucose 118 anion gap 11.5 CO2 29 chloride 103 potassium 4.5 sodium 139. GFR 43. Lactic Acid 0.3. EKG unremarkable IV NS lock Bumex 1mg IVP When laying flat in the room no change in respiratory status and sats 97%. Meds: Medications Discontinued Medications Generic Name Dose Route Start Last Admin Trade Name Freq PRN Reason Stop Dose Admin Amlodipine Besylate 5 mg 08/27/19 19:31 08/27/19 19:55 Norvasc PO 08/27/19 19:32 5 mg ONETIME ONE Administration Bumetanide 1 mg 08/27/19 18:55 08/27/19 19:55 Bumex IVPUSH 08/27/19 18:56 1 mg ONETIME ONE Administration Hydrochlorothiazide 12.5 mg 08/27/19 19:38 08/27/19 20:04 Hydrochlorothiazide PO 08/27/19 19:39 12.5 mg NOW STA Administration Sodium Chloride 10 ml 08/27/19 18:54 Saline Flush FLUSH ASDIRECTED PRN Keep Vein Open - Re-Assessments/Exams Free Text/Narrative Re-Assessment/Exam: 08/27/19 19:32 EKG was unremarkable. Really discussing with this patient he is rather noncompliant and multiple aspects of his care. He has not taken his lisinopril in multiple months. He is not taking his own insulin he is using a family members Lantus instead of his prescription medication. IV normal saline lock 1 mg Bumex IV. Pressure is also quite elevated at 180/96. This could be a component of not only his peripheral edema and fluid overload but also underlying hypertension that is poorly and not controlled. With his elevating creatinine unable to use LIsinopril which would be great for him with his kidney history although his creatinine is creeping up. Amlodipine 5mg PO now. 08/27/19 19:54 Also will give him a dose HCTZ. I do understand the risk of starting all these at the same time although the patient really needs some aggressive management at this time. By adding HCTZ to the Lasix we will get a better diuresis than lasix alone. 08/27/19 Patient does not become hypoxic when he is laying flat. There is no increase work of breathing. After the dose of Bumex he did void about 400 mils. The patient was sent over here to be admitted really looking back at his outpatient management with his known kidney disease he he really has not received much therapy for diuresis. Is not actively having any chest pain he is not hypoxic and in any distress. It is true that he is quite a weight gain but we need to be more aggressive with his diuresis and also his blood pressure management. We will send him home with aggressive diuresis over the next couple of days and start him on some amlodipine with close follow-up in the clinic and it is going to really be important for his primary care to get on the ball and get him into nephrology. The patient was quite tearful in the emergency department and we had a rather long discussion about the importance of management of his chronic disease. He is known for a long time that he needs to control his blood pressure and his diabetes although he does not take this to heart very well and is realizing that he has harmed himself quite extensively. I do not see any indication for hospitalization at this time as he has not had aggressive outpatient therapy at this time. We will increase his Lasix 120 mg a day and amlodipine 5 mg daily. Start sodium restriction as well as elevating his extremities. See primary care on Sunday and they must get on the ball and get him into nephrology. I would also consider adding hydrochlorothiazide to hit the other aspects of the anatomy of the kidney to ensure diuresis. Although we should closely monitor his kidney function with this so therefore I will hold this off for primary care to consider in the near future. Departure - Departure Time of Disposition: 21:28 Disposition: Home, Self-Care 01 Clinical Impression: Hypertension associated with diabetes, Peripheral edema, Nephrotic syndrome CKD (chronic kidney disease) Qualifiers: Chronic kidney disease stage: unspecified stage Qualified Code(s): N18.9 - Chronic kidney disease, unspecified Diabetes Qualifiers: Diabetes mellitus type: other specified (including MARZENA) Diabetes mellitus skilled nursing insulin use: with skilled nursing use Diabetes mellitus complication status : with other specified complication Qualified Code(s): E13.69 - Other specified diabetes mellitus with other specified complication Prescriptions: amLODIPine [Norvasc] 5 mg PO DAILY #30 tab Furosemide [Lasix] 40 mg PO BID #20 tab Instructions: Hypertension, Adult, [id number], Chronic Kidney Disease, Adult , [id number], Peripheral Edema Referrals: Sherly Gates ENDOSCOPE TECHNICIAN [Primary Care Provider] - Forms: ED Department Discharge Additional Instructions: Weigh yourself daily about the same time of day. Limit your salt intake and watch your fluid intake as well. Make sure and control your blood sugars as well as possible. Lasix, 40mg three times a day on , and twice a day on sunday. RX to [facility] pharmacy for extra lasix. See your PCP on SUNDAY and YOU MUST SEE NEPHROLOGY next available!!!! If you are having problems getting this set up please contact me in the ED and I will help as I can. See if you can get a kidney ultrasound done as well prior to seeing nephrology. Elevate your legs as much as possible above the level of your heart. Start Amlodipine 5mg 1 tablet daily tomorrow. RX to [facility]. Return to the ED if new or worsening symptoms. Sepsis Event Note - Focused Exam Date Exam was Performed: 08/28/19 Time Exam was Performed: 09:13 - My Orders Last 24 Hours: My Active Orders 08/27/19 18:52 EKG Documentation Completion [RC] STAT Peripheral IV Insertion Adult [OM.PC] Stat - Assessment/Plan Last 24 Hours: My Active Orders 08/27/19 18:52 EKG Documentation Completion [RC] STAT Peripheral IV Insertion Adult [OM.PC] Stat Assessment:: Moderate peripheral edema, due to CKD and uncontrolled hypertension CKD-HAS TO SEE NEPHROLOGY HTN-start on amlodipine, didn't use lisinopril due to the elevating creatinine. DM Plan: Weigh yourself daily about the same time of day. Limit your salt intake and watch your fluid intake as well. Make sure and control your blood sugars as well as possible. Lasix, 40mg three times a day on , and twice a day on sunday. RX to [facility] pharmacy for extra lasix. See your PCP on SUNDAY and YOU MUST SEE NEPHROLOGY next available!!!! If you are having problems getting this set up please contact me in the ED and I will help as I can. See if you can get a kidney ultrasound done as well prior to seeing nephrology. Elevate your legs as much as possible above the level of your heart. Start Amlodipine 5mg 1 tablet daily tomorrow. RX to [facility]. Return to the ED if new or worsening symptoms.
[2019-08-27 19:30] LABS: CHLORIDE,CL 105 mmol/L (98-107); SODIUM,NA 142 mmol/L (136-145)
[2019-08-27 19:34] LABS: ANION GAP 13.3 mmol/L (10-20)
--- NOTE | 2019-08-27 19:34 | CR ---
[id number] RAD/RAD Chest PA And Lateral EXAM: FRONTAL AND LATERAL CHEST INDICATION: Shortness of breath and peripheral edema. COMPARISON: August 24, 2019. DISCUSSION: The heart is at upper limits of normal for size and there are bilateral interstitial opacities and small bilateral effusions most consistent with fluid overload. Findings are similar to the previous examination. IMPRESSION: 1. Mild pulmonary edema and small bilateral pleural effusions are stable. Fredo Mireles MD 08/27/19 1933 Thank you for allowing us to participate in the care of your patient.
[2019-08-27] MEDS: amLODIPine 5 MG Tab PO ONE (19:55)
[2019-08-27] MEDS: Bumetanide 1 MG/4 ML MDV IVPUSH ONE (19:55)
[2019-08-27] MEDS: Hydrochlorothiazide 12.5 MG Cap PO STA (20:04)
== END 2019-08-27 21:50 | disposition home or self-care (01) ==
LOC: VM.ED 18:02
DX: I12.9 Hypertensive chronic kidney disease with stage 1 through stage 4 chronic kidney disease, or unspecified chronic kidney disease (principal); E11.22 Type 2 diabetes mellitus with diabetic chronic kidney disease; N18.9 Chronic kidney disease, unspecified; R60.0 Localized edema; E78.00 Pure hypercholesterolemia, unspecified; E78.5 Hyperlipidemia, unspecified; E11.40 Type 2 diabetes mellitus with diabetic neuropathy, unspecified; F41.9 Anxiety disorder, unspecified; F32.9 Major depressive disorder, single episode, unspecified; Z90.49 Acquired absence of other specified parts of digestive tract; Z88.1 Allergy status to other antibiotic agents; Z88.8 Allergy status to other drugs, medicaments and biological substances; Z88.0 Allergy status to penicillin; Z79.4 Long term (current) use of insulin; Z79.899 Other long term (current) drug therapy
CPT/HCPCS: 71046; 80048; 81001; 82140; 82977; 84484; 93005; 96374; 99285; A9270; J3490; 36415

== ENCOUNTER 2020-09-04 06:29 | Emergency (ER) | payer MEDICAID ==
[2020-09-04] MEDS ORDERED: Ondansetron 4 MG/2 ML SDV IVPUSH ONE (06:31)
[2020-09-04] MEDS ORDERED: Lactated Ringers 1,000 ML IV ONE (06:31)
--- NOTE | 2020-09-04 06:38 | EDM.PDOC ---
ED HPI GENERAL MEDICAL PROBLEM - General Chief Complaint: Gastrointestinal Problem Stated Complaint: nausea Time Seen by Provider: 09/04/20 06:29 Source of Information: Reports: Patient History Limitations: Reports: No Limitations - History of Present Illness INITIAL COMMENTS - FREE TEXT/NARRATIVE: Patient comes into the emergency department with nausea and vomiting concerns. Patient states that he was drinking alcohol which he tried to stop within the last couple years and he ended up indulging and significant amount of hard alcohol yesterday. He states that he started vomiting late last night and has continued to puke throughout the entire night. He is a type I diabetic and has been checking his blood sugars and states it has been relatively normal and has no major concerns. He is concerned that he is extremely nauseated and not able to control the vomiting. Patient did later admit to smoking Cannabis daily for the past5-10 years Onset: Sudden Location: Reports: Head Quality: Reports: Ache Improves with: Reports: None Worsens with: Reports: None Associated Symptoms: Reports: No Other Symptoms Left Abdomen Pain Score (Numeric/FACES): 10 - Related Data Allergies Allergy/AdvReac Type Severity Reaction Status Date / Time amoxicillin Allergy unknown Verified 08/24/19 20:45 cefaclor [From Ceclor] Allergy Other Verified 08/24/19 20:45 insulin aspart Allergy Other Verified 08/24/19 20:46 [From Novolog U-100 Insulin aspart] insulin detemir Allergy Itching Verified 08/24/19 20:45 [From Levemir] Penicillins Allergy Cannot Verified 08/24/19 20:45 Remember Home Meds: Home Meds Insulin Lispro [Humalog Kwikpen U-100] 10 - 12 unit SUBCUT TIDMEALS 04/16/17 [History] Non-Formulary Medication [NF Drug] 27 units SUBCUT DAILY 04/13/18 [History] Sertraline [Zoloft] 1 tab PO DAILY 10/24/18 [History] Furosemide [Lasix] 40 mg PO BID #20 tab 08/27/19 [Rx] amLODIPine [Norvasc] 5 mg PO DAILY #30 tab 08/27/19 [Rx] Past Medical History HEENT History: Reports: Impaired Vision, Other (See Below) Other HEENT History: He wears glasses with no history of diabetic retinopathy. Nasal fracture 2 last in 2012. Cardiovascular History: Reports: Heart Murmur, High Cholesterol, Hypertension, Other (See Below) Other Cardiovascular History: Hyperlipidemia currently diet controlled; previous history of unknown type of heart murmur secondary to previous illicit drug use. Coincident Hypertension due to Diabetes. Respiratory History: Reports: Intubation, Previous, Other (See Below) Other Respiratory History: Pulmonary obstructive disease by previous chest x- rays with no current treatment Gastrointestinal History: Reports: Cholelithiasis, Gastritis, GERD, GI Bleed, Other (See Below) Other Gastrointestinal History: Esophageal tear in 2001 secondary to illness and alcohol abuse with NG tube therapy and Port-A-Cath needed however no other surgical procedures; history of elevated LFTs possibly secondary to fatty liver. Genitourinary History: Reports: Chronic Renal Insuffiency, Diabetic Nephropathy, Other (See Below) Other Genitourinary History: Proteinuria Musculoskeletal History: Reports: Fracture, Other (See Below) Other Musculoskeletal History: Nasal fractures as above. Neurological History: Reports: Seizure, Other (See Below) Other Neuro History: Apparent unknown type of seizure activity with hypoglycemic episodes. 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 with additional alcohol abuse during those ages with previous inpatient treatment at age 22; note current daily use of marijuana for his nausea? previous medical therapy for anxiety depression disorder but no current counseling at this time and only recent initiation of low-dose Zoloft therapy. 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 Hyponatremia. Hematologic History: Reports: None Immunologic History: Reports: None Oncologic (Cancer) History: Reports: None Dermatologic History: Reports: Other (See Below) Other Dermatologic History: Acne vulgarissevere including scarring - Infectious Disease History Infectious Disease History: Reports: Chicken Pox, Mononucleosis. Denies: C- Difficile, Measles, Meningitis, MRSA, Mumps, Rheumatic Fever, Rubella, Scarlet Fever, Shingles, TB, VRE - Past Surgical History Head Surgeries/Procedures: Reports: None HEENT Surgical History: Reports: None Cardiovascular Surgical History: Reports: None Respiratory Surgical History: Reports: None GI Surgical History: Reports: Cholecystectomy, EGD, Other (See Below) Other GI Surgeries/Procedures: Laparoscopic cholecystectomy in 2009 secondary to dysfunctional gallbladder from his diabetes; EGD secondary to esophageal tear in 2001 Male Surgical History: Reports: Circumcision, Other (See Below) Other Male Surgeries/Procedures: Circumcision as an infant Endocrine Surgical History: Reports: None Neurological Surgical History: Reports: None Musculoskeletal Surgical History: Reports: None Oncologic Surgical History: Reports: None Dermatological Surgical History: Reports: None - Past Imaging History Past Imaging History: Reports: CAT Scan (CT of the head on 04/13/18.) Social & Family History - Caffeine Use Caffeine Use: Reports: Coffee (3 cups per day). Denies: Energy Drinks, Soda, Tea - Living Situation & Occupation Living situation: Reports: with Family (Son and daughter) Occupation: Employed ([employer]) ED ROS GENERAL - Review of Systems Review Of Systems: Comprehensive ROS is negative, except as noted in HPI. Constitutional: Reports: No Symptoms HEENT: Reports: No Symptoms Respiratory: Reports: No Symptoms Cardiovascular: Reports: No Symptoms Endocrine: Reports: No Symptoms GI/Abdominal: Reports: Nausea, Vomiting : Reports: No Symptoms Musculoskeletal: Reports: No Symptoms Skin: Reports: No Symptoms Neurological: Reports: No Symptoms Psychiatric: Reports: No Symptoms Hematologic/Lymphatic: Reports: No Symptoms Immunologic: Reports: No Symptoms ED EXAM, GENERAL - Physical Exam Exam: See Below Exam Limited By: No Limitations General Appearance: Alert, WD/WN, No Apparent Distress Eye Exam: Bilateral Eye: EOMI, PERRL Ears: Normal External Exam, Normal Canal, Hearing Grossly Normal Nose: Normal Inspection, Normal Mucosa Throat/Mouth: Normal Inspection, Normal Lips, Normal Teeth Head: Atraumatic, Normocephalic Neck: Normal Inspection, Supple, Non-Tender Respiratory/Chest: No Respiratory Distress, Lungs Clear, Normal Breath Sounds, No Accessory Muscle Use, Chest Non-Tender Cardiovascular: Normal Peripheral Pulses, Regular Rate, Rhythm, No Edema GI/Abdominal: Normal Bowel Sounds, Soft, Non-Tender Back Exam: Normal Inspection, Full Range of Motion Extremities: Normal Inspection, Normal Range of Motion, Non-Tender, Normal Capillary Refill Neurological: Alert, Oriented, CN II-XII Intact, Normal Cognition Psychiatric: Normal Affect, Normal Mood Skin Exam: Warm, Dry, Intact, Normal Color Course - Vital Signs Last Recorded V/S: Last Vital Signs Temp 36.3 C 09/04/20 06:29 Pulse 103 H 09/04/20 06:29 Resp 18 09/04/20 06:29 BP 209/117 H 09/04/20 06:29 Pulse Ox 98 09/04/20 06:29 - Orders/Labs/Meds Labs: Laboratory Tests 09/04/20 09/04/20 Range/Units 06:30 06:30 WBC 13.8 H (4.0-10.0) x10^3/uL RBC 4.85 (4.5-6.0) x10^6/uL Hgb 15.0 D (14.0-18.0) g/dL Hct 42.0 (40.0-52.0) % MCV 86.6 (78.0-93.0) fL MCH 30.9 (26.0-32.0) pg MCHC 35.7 (32.0-36.0) g/dL RDW Coeff of Chevy 13.9 (10.0-15.0) % Plt Count 360 (130-400) x10^3/uL Neut % (Auto) 81.9 H (50.0-80.0) % Lymph % (Auto) 11.0 L (25.0-50.0) % Finney % (Auto) 4.3 (2.0-11.0) % Eos % (Auto) 2.1 (0.0-4.0) % Baso % (Auto) 0.7 (0.2-1.2) % Sodium 139 (136-145) mmol/L Potassium 3.8 (3.5-5.1) mmol/L Chloride 96 L (98-107) mmol/L Carbon Dioxide 31 (21-32) mmol/L Anion Gap 15.8 H (5-15) mmol/L BUN 34 H (7-18) mg/dL Creatinine 2.7 H (0.70-1.30) mg/dL Est Cr Clr Drug Dosing TNP Estimated GFR (MDRD) 27 Glucose 188 H (70-99) mg/dL Calcium 9.2 (8.5-10.1) mg/dL Corrected Calcium 10.16 H (8.5-10.1) mg/dL Total Bilirubin 0.2 (0.2-1.0) mg/dL AST 18 (15-37) U/L ALT 29 (16-63) U/L Alkaline Phosphatase 96 (46-116) U/L Total Protein 6.9 (6.4-8.2) g/dL Albumin 2.8 L (3.4-5.0) g/dL Globulin 4.1 g/dL Albumin/Globulin Ratio 0.68 Ethyl Alcohol 50 H (0-3) mg/dL Meds: Medications Discontinued Medications Generic Name Dose Route Start Last Admin Trade Name Fzaalq PRN Reason Stop Dose Admin Al Hydroxide/Mg Hydroxide 30 ml 09/04/20 07:14 09/04/20 07:27 Gi Cocktail Oral Solution 30 Ml PO 09/04/20 07:15 30 ml ONETIME ONE Administration Diazepam 2 mg 09/04/20 07:15 09/04/20 07:27 Diazepam 10 Mg/2 Ml Syringe IVPUSH 09/04/20 07:16 2 mg STAT ONE Administration Lactated Ringer's 1,000 mls @ 1,000 mls/hr 09/04/20 06:31 09/04/20 06:45 Ringers, Lactated IV 09/04/20 07:30 1,000 mls/hr ONETIME ONE Administration Ketorolac Tromethamine 15 mg 09/04/20 07:04 09/04/20 07:11 Ketorolac 15 Mg/Ml Sdv IVPUSH 09/04/20 07:05 15 mg ONETIME ONE Administration Ondansetron HCl 4 mg 09/04/20 06:31 09/04/20 06:45 Ondansetron 4 Mg/2 Ml Sdv IVPUSH 09/04/20 06:32 4 mg ONETIME ONE Administration Departure - Departure Time of Disposition: 08:40 Disposition: Home, Self-Care 01 Condition: Good Clinical Impression: Hyperemesis, ETOH abuse Nausea & vomiting Qualifiers: Vomiting type: unspecified Vomiting Intractability: non-intractable Qualified Code(s): R11.2 - Nausea with vomiting, unspecified - Discharge Information *PRESCRIPTION DRUG MONITORING PROGRAM REVIEWED*: Not Applicable Instructions: Nausea and Vomiting, Adult Forms: ED Department Discharge Additional Instructions: 1. rest 2. increase your water intake 3. Continue all at home medications 4. Activity and diet as tolerated 5. Can take over the counter Tylenol for any pain or discomfort 6. Follow up with PCP if symptoms continue, return, or progress 7. Call with any questions or concerns Sepsis Event Note (ED) - Focused Exam Vital Signs: Vital Signs Temp Pulse Resp BP Pulse Ox 09/04/20 06:29 36.3 C 103 H 18 209/117 H 98 - Assessment/Plan Assessment:: 1. nausea 2. Hyperemesis related to Cannibis use Plan: 1. Labs completed in the ER. Results reviewed with the patient 2. IV initiated in the emergency department 3. IV fluids provided 4. CT scan of abdomen 5. Zofran given in the ER to help with nausea 6. Patient and nursing staff was updated regarding the plan of care 7. Education provided the patient regarding activity, diet, rest, over-the- counter medication modalities, and follow-up care was provided 8. Patient and family are agreeable to the above plan of care 9. All questions and concerns were addressed with the patient and family prior to discharge
[2020-09-04] MEDS ORDERED: Ketorolac 15 MG/ML SDV IVPUSH ONE (07:04)
[2020-09-04] MEDS ORDERED: GI Cocktail Oral Solution 30 ML PO ONE (07:14)
[2020-09-04 07:31] LABS: ANION GAP 15.8 mmol/L (5-15); CHLORIDE,CL 96 mmol/L (98-107); SODIUM,NA 139 mmol/L (136-145)
--- NOTE | 2020-09-04 08:17 | CT ---
[id number] CT/CT Abdomen Pelvis WO IV EXAM: CT Abdomen Pelvis WO IV CLINICAL DATA: ABDOMEN PAIN COMPARISON STUDY: None. FINDINGS: Evaluation of the abdominal organs is limited secondary to a lack of contrast and paucity of intra-abdominal fat. Lung bases are clear. The gallbladder surgically absent. The spleen, liver, pancreas, adrenal glands and kidneys are unremarkable. The gallbladder is mildly distended. There is mild pericolonic inflammatory change. The appendix is visualized and appears normal. No lymphadenopathy, free fluid, or pneumoperitoneum. Scattered changes of spondylosis the spine. No fracture or osseous lesion. IMPRESSION: Mild pericolonic inflammatory change could be seen with pancolitis which may be infectious/inflammatory in nature. Sean Best DO 09/04/20 0816 Thank you for allowing us to participate in the care of your patient.
== END 2020-09-04 08:45 | disposition home or self-care (01) ==
LOC: VM.ED 06:29
DX: R11.2 Nausea with vomiting, unspecified (principal); F10.10 Alcohol abuse, uncomplicated; I12.9 Hypertensive chronic kidney disease with stage 1 through stage 4 chronic kidney disease, or unspecified chronic kidney disease; N18.9 Chronic kidney disease, unspecified; E10.21 Type 1 diabetes mellitus with diabetic nephropathy; E10.22 Type 1 diabetes mellitus with diabetic chronic kidney disease; Z88.0 Allergy status to penicillin; Z88.1 Allergy status to other antibiotic agents; Z88.7 Allergy status to serum and vaccine; Z79.4 Long term (current) use of insulin; Z79.899 Other long term (current) drug therapy
CPT/HCPCS: 74176; 80053; 80307; 82962; 85025; 96374; 96375; 99284; 99284-25; A9270-GY; J1885; J2405; J3360; J7120

== ENCOUNTER 2020-09-05 15:07 | Emergency (ER) | payer MEDICAID ==
[2020-09-05] MEDS ORDERED: Sodium Chloride 0.9% 1,000 ML IV ONE (15:25)
[2020-09-05] MEDS ORDERED: Ondansetron 4 MG/2 ML SDV IVPUSH ONE (15:26)
[2020-09-05] MEDS ORDERED: Sodium Chloride 0.9% 10 ML Syringe FLUSH PRN (15:26)
[2020-09-05] MEDS ORDERED: Ketorolac 15 MG/ML SDV IVPUSH ONE (15:32)
--- NOTE | 2020-09-05 15:43 | EDM.PDOC ---
ED HPI GENERAL MEDICAL PROBLEM - General Chief Complaint: Gastrointestinal Problem Stated Complaint: not feeling well/diabetes Time Seen by Provider: 09/05/20 15:15 Source of Information: Reports: Patient History Limitations: Reports: No Limitations - History of Present Illness INITIAL COMMENTS - FREE TEXT/NARRATIVE: Patient comes into the emergency department with complaints of nausea and vomiting and not feeling well. Patient was in emergency room visit approximately 24 hours ago for similar incidents related to hyperemesis secondary to cannabis use. The patient states that he has not used any cannabis for 2 days. He states that he has not used any alcohol use in 2 days as well. He states that he has continued to have nausea and vomiting throughout the weekend. He is a type I diabetic and is concerned regarding his diabetes for is not able to keep any liquids down. He states he has been able check his blood sugars regularly and has been given his insulin per his recommendations the sliding scale. He has not had an appetite. Onset: Gradual Quality: Reports: Other Severity: Moderate Improves with: Reports: Rest Worsens with: Reports: Rest Associated Symptoms: Reports: Loss of Appetite, Malaise, Nausea/Vomiting, Weakness - Related Data Allergies Allergy/AdvReac Type Severity Reaction Status Date / Time amoxicillin Allergy unknown Verified 09/05/20 15:22 cefaclor [From Ceclor] Allergy Other Verified 09/05/20 15:22 insulin aspart Allergy Other Verified 09/05/20 15:22 [From Novolog U-100 Insulin aspart] insulin detemir Allergy Itching Verified 09/05/20 15:22 [From Levemir] Penicillins Allergy Cannot Verified 09/05/20 15:22 Remember Home Meds: Home Meds Insulin Lispro [Humalog Kwikpen U-100] 10 - 12 unit SUBCUT TIDMEALS 04/16/17 [History] Non-Formulary Medication [NF Drug] 27 units SUBCUT DAILY 04/13/18 [History] Sertraline [Zoloft] 1 tab PO DAILY 10/24/18 [History] Furosemide [Lasix] 40 mg PO BID #20 tab 08/27/19 [Rx] amLODIPine [Norvasc] 5 mg PO DAILY #30 tab 08/27/19 [Rx] Past Medical History HEENT History: Reports: Impaired Vision, Other (See Below) Other HEENT History: He wears glasses with no history of diabetic retinopathy. Nasal fracture 2 last in 2012. Cardiovascular History: Reports: Heart Murmur, High Cholesterol, Hypertension, Other (See Below) Other Cardiovascular History: Hyperlipidemia currently diet controlled; previous history of unknown type of heart murmur secondary to previous illicit drug use. Coincident Hypertension due to Diabetes. Respiratory History: Reports: Intubation, Previous, Other (See Below) Other Respiratory History: Pulmonary obstructive disease by previous chest x- rays with no current treatment Gastrointestinal History: Reports: Cholelithiasis, Gastritis, GERD, GI Bleed, Other (See Below) Other Gastrointestinal History: Esophageal tear in 2001 secondary to illness and alcohol abuse with NG tube therapy and Port-A-Cath needed however no other surgical procedures; history of elevated LFTs possibly secondary to fatty liver. Genitourinary History: Reports: Chronic Renal Insuffiency, Diabetic Nephropathy, Other (See Below) Other Genitourinary History: Proteinuria Musculoskeletal History: Reports: Fracture, Other (See Below) Other Musculoskeletal History: Nasal fractures as above. Neurological History: Reports: Seizure, Other (See Below) Other Neuro History: Apparent unknown type of seizure activity with hypoglycemic episodes. 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 with additional alcohol abuse during those ages with previous inpatient treatment at age 22; note current daily use of marijuana for his nausea? previous medical therapy for anxiety depression disorder but no current counseling at this time and only recent initiation of low-dose Zoloft therapy. 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 Hyponatremia. Hematologic History: Reports: None Immunologic History: Reports: None Oncologic (Cancer) History: Reports: None Dermatologic History: Reports: Other (See Below) Other Dermatologic History: Acne vulgarissevere including scarring - Infectious Disease History Infectious Disease History: Reports: Chicken Pox, Mononucleosis - Past Surgical History GI Surgical History: Reports: Cholecystectomy, EGD, Other (See Below) Other GI Surgeries/Procedures: Laparoscopic cholecystectomy in 2009 secondary to dysfunctional gallbladder from his diabetes; EGD secondary to esophageal tear in 2001 Male Surgical History: Reports: Circumcision, Other (See Below) Other Male Surgeries/Procedures: Circumcision as an - Past Imaging History Past Imaging History: Reports: CAT Scan (CT of the head on 04/13/18.) Social & Family History - Family History Family Medical History: No Pertinent Family History - Tobacco Use Tobacco Use Status *Q: Current Status Unknown - Caffeine Use Caffeine Use: Reports: Coffee (3 cups per day). Denies: Energy Drinks, Soda, Tea - Recreational Drug Use Recreational Drug Use: Yes Recreational Drug Type: Reports: Marijuana/Hashish - Living Situation & Occupation Living situation: Reports: with Family (Son and daughter) Occupation: Employed ([employer]) ED ROS GENERAL - Review of Systems Review Of Systems: Comprehensive ROS is negative, except as noted in HPI. Constitutional: Reports: Malaise, Fatigue, Decreased Appetite HEENT: Reports: No Symptoms Respiratory: Reports: No Symptoms Cardiovascular: Reports: No Symptoms Endocrine: Reports: No Symptoms GI/Abdominal: Reports: No Symptoms : Reports: No Symptoms Musculoskeletal: Reports: No Symptoms Skin: Reports: No Symptoms Neurological: Reports: No Symptoms Psychiatric: Reports: No Symptoms Hematologic/Lymphatic: Reports: No Symptoms Immunologic: Reports: No Symptoms ED EXAM, GENERAL - Physical Exam Exam: See Below Exam Limited By: No Limitations General Appearance: Alert, WD/WN, No Apparent Distress Eye Exam: Bilateral Eye: EOMI Throat/Mouth: Normal Inspection, Normal Lips, No Airway Compromise Head: Atraumatic, Normocephalic Neck: Normal Inspection, Supple, Non-Tender Respiratory/Chest: No Respiratory Distress, Lungs Clear, Normal Breath Sounds, No Accessory Muscle Use, Chest Non-Tender Cardiovascular: Normal Peripheral Pulses, Regular Rate, Rhythm, No Edema Peripheral Pulses: 4+: Radial (L), Radial (R) Back Exam: Normal Inspection, Full Range of Motion Extremities: Normal Inspection, Normal Range of Motion, Non-Tender, Normal Capillary Refill Neurological: Alert, Oriented, CN II-XII Intact, Normal Cognition Psychiatric: Normal Affect, Normal Mood Skin Exam: Warm, Dry, Intact, Normal Color Course - Vital Signs Last Recorded V/S: Last Vital Signs Temp 36.4 C 09/05/20 15:10 Pulse 120 H 09/05/20 15:10 Resp 18 09/05/20 15:10 BP 186/124 H 09/05/20 15:10 Pulse Ox 99 09/05/20 15:10 - Orders/Labs/Meds Orders: Active Orders 24 hr Category Date Time Status CORONAVIRUS COVID-19 RAPID [MOLEC] Stat Lab 09/05/20 16:07 Ordered CULTURE BLOOD [BC] Stat Lab 09/05/20 16:06 Ordered CULTURE BLOOD [BC] Stat Lab 09/05/20 16:06 Ordered PH,VENOUS [BG] Stat Lab 09/05/20 16:28 Ordered Lactated Ringers [Ringers, Lactated] 1,000 ml Med 09/05/20 16:28 Ordered IV ONETIME Sodium Chloride 0.9% [Saline Flush] Med 09/05/20 15:26 Active 10 ml FLUSH ASDIRECTED PRN Blood Culture x2 Reflex Set [OM.PC] Stat Oth 09/05/20 16:06 Ordered Peripheral IV Insertion Adult [OM.PC] Stat Oth 09/05/20 15:25 Ordered Medication Orders Lactated Ringer's (Ringers, Lactated) 1,000 mls @ 1,000 mls/hr IV ONETIME ONE Stop: 09/05/20 17:27 Sodium Chloride (Sodium Chloride 0.9% 10 Ml Syringe) 10 ml FLUSH ASDIRECTED PRN PRN Reason: Keep Vein Open Labs: Laboratory Tests 09/05/20 09/05/20 09/05/20 Range/Units 15:40 15:40 15:40 WBC 18.8 H (4.0-10.0) x10^3/uL RBC 5.15 (4.5-6.0) x10^6/uL Hgb 15.9 (14.0-18.0) g/dL Hct 44.5 (40.0-52.0) % MCV 86.4 (78.0-93.0) fL MCH 30.9 (26.0-32.0) pg MCHC 35.7 (32.0-36.0) g/dL RDW Coeff of Chevy 13.9 (10.0-15.0) % Plt Count 408 H (130-400) x10^3/uL Neut % (Auto) 87.3 H (50.0-80.0) % Lymph % (Auto) 6.6 L (25.0-50.0) % Bollinger % (Auto) 5.7 (2.0-11.0) % Eos % (Auto) 0.1 (0.0-4.0) % Baso % (Auto) 0.3 (0.2-1.2) % Sodium 136 (136-145) mmol/L Potassium 2.8 L* (3.5-5.1) mmol/L Chloride 87 L (98-107) mmol/L Carbon Dioxide 42 H D (21-32) mmol/L Anion Gap 9.8 (5-15) mmol/L BUN 47 H (7-18) mg/dL Creatinine 3.7 H* (0.70-1.30) mg/dL Est Cr Clr Drug Dosing TNP Estimated GFR (MDRD) 19 Glucose 275 H (70-99) mg/dL Lactic Acid 1.5 (0.4-2.0) mmol/L Calcium 9.4 (8.5-10.1) mg/dL Corrected Calcium 10.28 H (8.5-10.1) mg/dL Total Bilirubin 0.4 (0.2-1.0) mg/dL AST 27 (15-37) U/L ALT 30 (16-63) U/L Alkaline Phosphatase 108 (46-116) U/L Total Protein 7.2 (6.4-8.2) g/dL Albumin 2.9 L (3.4-5.0) g/dL Globulin 4.3 Albumin/Globulin Ratio 0.67 Meds: Medications Generic Name Dose Route Start Last Admin Trade Name Freq PRN Reason Stop Dose Admin Lactated Ringer's 1,000 mls @ 1,000 mls/hr 09/05/20 16:28 Ringers, Lactated IV 09/05/20 17:27 ONETIME ONE Sodium Chloride 10 ml 09/05/20 15:26 Sodium Chloride 0.9% 10 Ml Syringe FLUSH ASDIRECTED PRN Keep Vein Open Discontinued Medications Generic Name Dose Route Start Last Admin Trade Name Freq PRN Reason Stop Dose Admin Ceftriaxone Sodium 1 gm 09/05/20 16:05 Ceftriaxone 1 Gm Vial IVPUSH 09/05/20 16:06 ONETIME ONE Diazepam 5 mg 09/05/20 15:26 09/05/20 15:46 Diazepam 10 Mg/2 Ml Syringe IVPUSH 09/05/20 15:27 5 mg STAT ONE Administration Sodium Chloride 1,000 mls @ 1,000 mls/hr 09/05/20 15:25 09/05/20 15:38 Normal Saline IV 09/05/20 16:24 1,000 mls/hr ONETIME ONE Administration Ketorolac Tromethamine 15 mg 09/05/20 15:32 09/05/20 15:43 Ketorolac 15 Mg/Ml Sdv IVPUSH 09/05/20 15:33 15 mg ONETIME ONE Administration Ondansetron HCl 4 mg 09/05/20 15:26 09/05/20 15:40 Ondansetron 4 Mg/2 Ml Sdv IVPUSH 09/05/20 15:27 4 mg ONETIME ONE Administration Departure - Departure Time of Disposition: 16:30 Disposition: DC/Tfer to Acute Hospital 02 Condition: Good Clinical Impression: DKA (diabetic ketoacidoses) Qualifiers: Diabetes mellitus type: type 1 Diabetes mellitus complication detail: without coma Qualified Code(s): E10.10 - Type 1 diabetes mellitus with ketoacidosis without coma Nausea & vomiting Qualifiers: Vomiting type: unspecified Vomiting Intractability: intractable Qualified Code(s): R11.2 - Nausea with vomiting, unspecified - Discharge Information *PRESCRIPTION DRUG MONITORING PROGRAM REVIEWED*: Not Applicable *COPY OF PRESCRIPTION DRUG MONITORING REPORT IN PATIENT OBED: Not Applicable Referrals: Sherly Gates [facility] [Primary Care Provider] - Forms: ED Department Discharge, Interfacility Transfer [facility] Sepsis Event Note (ED) - Evaluation Sepsis Screening Result: No Definite Risk - Focused Exam Vital Signs: Vital Signs Temp Pulse Resp BP Pulse Ox 09/05/20 15:10 36.4 C 120 H 18 186/124 H 99 - My Orders Last 24 Hours: My Active Orders 09/05/20 15:25 Peripheral IV Insertion Adult [OM.PC] Stat 09/05/20 15:26 Sodium Chloride 0.9% [Saline Flush] 10 ml FLUSH ASDIRECTED PRN 09/05/20 16:06 CULTURE BLOOD [BC] Stat CULTURE BLOOD [BC] Stat Blood Culture x2 Reflex Set [OM.PC] Stat 09/05/20 16:07 CORONAVIRUS COVID-19 RAPID [MOLEC] Stat 09/05/20 16:28 PH,VENOUS [BG] Stat Lactated Ringers [Ringers, Lactated] 1,000 ml IV ONETIME - Assessment/Plan Last 24 Hours: My Active Orders 09/05/20 15:25 Peripheral IV Insertion Adult [OM.PC] Stat 09/05/20 15:26 Sodium Chloride 0.9% [Saline Flush] 10 ml FLUSH ASDIRECTED PRN 09/05/20 16:06 CULTURE BLOOD [BC] Stat CULTURE BLOOD [BC] Stat Blood Culture x2 Reflex Set [OM.PC] Stat 09/05/20 16:07 CORONAVIRUS COVID-19 RAPID [MOLEC] Stat 09/05/20 16:28 PH,VENOUS [BG] Stat Lactated Ringers [Ringers, Lactated] 1,000 ml IV ONETIME Assessment:: 1. weakness 2. fatigue 3. Hyperemesis related to cannabis use 4. Type 1 diabetic Plan: 1. Labs completed in the ER. Results reviewed with the patient 2. IV initiated in the emergency department 3. IV fluids provided 4. Pain medication given for severe pain and discomfort- Toradol given 5. Blood cultures completed 6. Rocephin 1gm given 7. Zofran given in the ER to help with nausea 8. Consultation completed with [facility]: pt will be transferred via ambulance for further medical management due to no available [facility] provider able to admit 9. Patient and nursing staff was updated regarding the plan of care 10. Patient and family are agreeable to the above plan of care 11. All questions and concerns were addressed with the patient and family prior to discharge
[2020-09-05] MEDS ORDERED: cefTRIAXone 1 GM Vial IVPUSH ONE (16:05)
[2020-09-05 16:13] LABS: CHLORIDE,CL 87 mmol/L (98-107); SODIUM,NA 136 mmol/L (136-145)
[2020-09-05 16:15] LABS: ANION GAP 9.8 mmol/L (5-15)
[2020-09-05] MEDS ORDERED: Lactated Ringers 1,000 ML IV ONE (16:28)
[2020-09-05 16:48] LABS: BASE EXCESS VENOUS 22 mmol/L ((-2)-3); BICARBONATE,VENOUS 43 mmol/L (22-29); O2 SATURATION VENOUS 93 %; PCO2 VENOUS 43 mmHG (41-51); PH,VENOUS 7.61 pH (7.33-7.43); PO2 VENOUS 56 mmHG
== END 2020-09-05 17:02 | disposition short-term general hospital (02) ==
LOC: VM.ED 15:07
DX: E10.10 Type 1 diabetes mellitus with ketoacidosis without coma (principal); R11.2 Nausea with vomiting, unspecified; I12.9 Hypertensive chronic kidney disease with stage 1 through stage 4 chronic kidney disease, or unspecified chronic kidney disease; E10.21 Type 1 diabetes mellitus with diabetic nephropathy; E10.22 Type 1 diabetes mellitus with diabetic chronic kidney disease; N18.9 Chronic kidney disease, unspecified; Z88.0 Allergy status to penicillin; Z88.1 Allergy status to other antibiotic agents; Z88.8 Allergy status to other drugs, medicaments and biological substances; Z79.899 Other long term (current) drug therapy; Z20.822 Contact with and (suspected) exposure to COVID-19
CPT/HCPCS: 36415; 80053; 82803; 83605; 83735; 84100; 85025; 87040; 96374; 96375; 99284; 99285-25; J0696; J1885; J2405; J3360; J7030; J7120; U0002

== ENCOUNTER 2020-10-04 23:25 | Emergency (ER) | payer MEDICAID ==
[2020-10-05] MEDS ORDERED: 50% Dextrose in Water 50 ML Syringe IV PRN (00:20)
[2020-10-05] MEDS ORDERED: 50% Dextrose in Water 50 ML Syringe ONE (00:35)
--- NOTE | 2020-10-05 07:28 | EDM.PDOC ---
ED HPI GENERAL MEDICAL PROBLEM - General Chief Complaint: General Stated Complaint: Low BS, diabetic Time Seen by Provider: 10/04/20 23:25 Source of Information: Reports: Patient, EMS History Limitations: Reports: No Limitations - History of Present Illness INITIAL COMMENTS - FREE TEXT/NARRATIVE: Pt. had a hypoglycemic episode at home. He was lying on the couch with his children. Pt. states that they had had spaghetti and his Mother had come over as well. Pt. states that he took 14 units of humalog as it was a carb rich meal. He then developed decreased LOC and confusion. Daughter called pt. Mother who came to scene and summoned EMS. First responders checked his blood sugar with his machine and found it in the 60s. Pt. was becoming less responsive. They attempted to give him oral glucose. Paramedics arrived and found the patient to have a blood glucose in the 30s. He was extremely combative and had to be restrained to get IV access. Pt. was given an amp of D50 and transported. Pt. states that he ate a slice of toast on the way into [employer] in the ambulance. He was alert and oriented during transport. Onset: Today Onset Date: 10/04/20 Location: Reports: Generalized Treatments DESIGN ASSISTANT: Reports: IV/IO Other Treatments DESIGN ASSISTANT: D50 one amp - Related Data Allergies Allergy/AdvReac Type Severity Reaction Status Date / Time amoxicillin Allergy unknown Verified 10/05/20 07:16 cefaclor [From Ceclor] Allergy Other Verified 10/05/20 07:16 insulin aspart Allergy Other Verified 10/05/20 07:16 [From Novolog U-100 Insulin aspart] insulin detemir Allergy Itching Verified 10/05/20 07:16 [From Levemir] Penicillins Allergy Cannot Verified 10/05/20 07:16 Remember Home Meds: Home Meds Insulin Lispro [Humalog Kwikpen U-100] 10 - 12 unit SUBCUT TIDMEALS 04/16/17 [History] Insulin Glarg,Human.Rec.Analog [Lantus Solostar] 40 units SUBCNJ BEDTIME 10/05/20 [History] Pantoprazole Sodium [Protonix] 40 mg PO BID 10/05/20 [History] carvediloL [Coreg] 6.25 mg PO BID 10/05/20 [History] Past Medical History HEENT History: Reports: Impaired Vision, Other (See Below) Other HEENT History: He wears glasses with no history of diabetic retinopathy. Nasal fracture 2 last in 2012. Cardiovascular History: Reports: Heart Murmur, High Cholesterol, Hypertension, Other (See Below) Other Cardiovascular History: Hyperlipidemia currently diet controlled; previous history of unknown type of heart murmur secondary to previous illicit drug use. Coincident Hypertension due to Diabetes. Respiratory History: Reports: Intubation, Previous, Other (See Below) Other Respiratory History: Pulmonary obstructive disease by previous chest x- rays with no current treatment Gastrointestinal History: Reports: Cholelithiasis, Gastritis, GERD, GI Bleed, Other (See Below) Other Gastrointestinal History: Esophageal tear in 2001 secondary to illness and alcohol abuse with NG tube therapy and Port-A-Cath needed however no other surgical procedures; history of elevated LFTs possibly secondary to fatty liver. Genitourinary History: Reports: Chronic Renal Insuffiency, Diabetic Nephropathy, Other (See Below) Other Genitourinary History: Proteinuria Musculoskeletal History: Reports: Fracture, Other (See Below) Other Musculoskeletal History: Nasal fractures as above. Neurological History: Reports: Seizure, Other (See Below) Other Neuro History: Apparent unknown type of seizure activity with hypoglycemic episodes. 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 with additional alcohol abuse during those ages with previous inpatient treatment at age 22; note current daily use of marijuana for his nausea? previous medical therapy for anxiety depression disorder but no current counseling at this time and only recent initiation of low-dose Zoloft therapy. 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 Hyponatremia. Hematologic History: Reports: None Immunologic History: Reports: None Oncologic (Cancer) History: Reports: None Dermatologic History: Reports: Other (See Below) Other Dermatologic History: Acne vulgarissevere including scarring - Infectious Disease History Infectious Disease History: Reports: Chicken Pox, Mononucleosis - Past Surgical History GI Surgical History: Reports: Cholecystectomy, EGD, Other (See Below) Other GI Surgeries/Procedures: Laparoscopic cholecystectomy in 2009 secondary to dysfunctional gallbladder from his diabetes; EGD secondary to esophageal tear in 2001 Male Surgical History: Reports: Circumcision, Other (See Below) Other Male Surgeries/Procedures: Circumcision as an infant - Past Imaging History Past Imaging History: Reports: CAT Scan (CT of the head on 04/13/18.) Social & Family History - Family History Family Medical History: No Pertinent Family History - Caffeine Use Caffeine Use: Reports: Coffee (3 cups per day). Denies: Energy Drinks, Soda, Tea - Living Situation & Occupation Living situation: Reports: with Family (Son and daughter) Occupation: Employed ([employer]) ED ROS GENERAL - Review of Systems Review Of Systems: See Below Constitutional: Reports: No Symptoms HEENT: Reports: No Symptoms Respiratory: Reports: No Symptoms Cardiovascular: Reports: No Symptoms Endocrine: Reports: Low Glucose GI/Abdominal: Reports: No Symptoms : Reports: No Symptoms Musculoskeletal: Reports: No Symptoms Skin: Reports: No Symptoms Neurological: Reports: No Symptoms Psychiatric: Reports: No Symptoms Hematologic/Lymphatic: Reports: No Symptoms Immunologic: Reports: No Symptoms ED EXAM, GENERAL - Physical Exam Exam: See Below Exam Limited By: No Limitations General Appearance: Alert, WD/WN, No Apparent Distress Eye Exam: Bilateral Eye: EOMI Nose: Normal Inspection, Normal Mucosa, No Blood Throat/Mouth: Normal Inspection, Normal Lips, Normal Teeth, Normal Gums, Normal Oropharynx, Normal Voice, No Airway Compromise Head: Atraumatic, Normocephalic Neck: Normal Inspection, Supple, Non-Tender, Full Range of Motion Respiratory/Chest: No Respiratory Distress, Lungs Clear, Normal Breath Sounds, No Accessory Muscle Use, Chest Non-Tender Cardiovascular: Normal Peripheral Pulses, Regular Rate, Rhythm, No Edema, No JVD GI/Abdominal: Soft, Non-Tender, No Distention, No Mass (Male) Exam: Deferred Rectal (Males) Exam: Deferred Extremities: Normal Inspection, Normal Range of Motion, Non-Tender, No Pedal Edema, Normal Capillary Refill Neurological: Alert, Oriented, CN II-XII Intact, Normal Cognition, Normal Reflexes, No Motor/Sensory Deficits Psychiatric: Normal Affect, Normal Mood Skin Exam: Warm, Dry, Intact, Normal Color, No Rash Lymphatic: No Adenopathy Course - Vital Signs Last Recorded V/S: Last Vital Signs Temp 36.2 C 10/04/20 23:25 Pulse 80 10/04/20 23:25 Resp 16 10/04/20 23:25 BP 170/99 H 10/04/20 23:25 Pulse Ox 16 L 10/04/20 23:25 - Orders/Labs/Meds Labs: Laboratory Tests 10/05/20 Range/Units 01:16 POC Glucose 70 (70-99) mg/dL Meds: Medications Discontinued Medications Generic Name Dose Route Start Last Admin Trade Name Dion PRN Reason Stop Dose Admin Dextrose/Water Confirm 10/05/20 00:35 50% Dextrose In Water 50 Ml Syringe Administered 10/05/20 00:36 Dose 50 ml .ROUTE .STK-MED ONE - Re-Assessments/Exams Free Text/Narrative Re-Assessment/Exam: Pt. was alert but fatigued after arrival to ER. Repeat blood sugar by EMS was in the 220 range. Shortly after arrival at ER, pt. became confused and fell out of bed. He was diaphoretic. Pt. was given a second amp of D50 and regained consciousness and was much more alert and interactive. Pt. was made to eat several muffins and containers of milk. He remembered the events of the night. Departure - Departure Time of Disposition: 01:00 Disposition: Home, Self-Care 01 Clinical Impression: Hypoglycemia - Discharge Information Instructions: Hypoglycemia Forms: ED Department Discharge Additional Instructions: home to rest. make sure to check your blood sugar regularly. follow-up in clinic as needed. Sepsis Event Note (ED) - Evaluation Sepsis Screening Result: No Definite Risk - Focused Exam Vital Signs: Vital Signs Temp Pulse Resp BP Pulse Ox 10/04/20 23:25 36.2 C 80 16 170/99 H 16 L - Problem List Review Problem List Initiated/Reviewed/Updated: Yes - Assessment/Plan Plan: Pt. was adamant that he be discharged. He states that his mother will be staying with him tonight. He may have dropped his blood sugar again as he had been physically restrained on scene and only consumed 1 slice of toast after the D50. Blood glucose at time of discharge was within normal range at time of discharge. He was advised to make sure to check his blood glucose before going to sleep tonight.
== END 2020-10-05 01:35 | disposition home or self-care (01) ==
LOC: VM.ED 23:25
DX: E10.649 Type 1 diabetes mellitus with hypoglycemia without coma (principal); K21.9 Gastro-esophageal reflux disease without esophagitis; I12.9 Hypertensive chronic kidney disease with stage 1 through stage 4 chronic kidney disease, or unspecified chronic kidney disease; N18.9 Chronic kidney disease, unspecified; E10.21 Type 1 diabetes mellitus with diabetic nephropathy; E10.22 Type 1 diabetes mellitus with diabetic chronic kidney disease; Z88.0 Allergy status to penicillin; Z88.1 Allergy status to other antibiotic agents
CPT/HCPCS: 82947; 99284

== ENCOUNTER 2020-11-18 12:24 | Emergency (ER) | payer MEDICAID ==
[2020-11-18] MEDS ORDERED: Sodium Chloride 0.9% 10 ML Syringe FLUSH PRN (12:39)
[2020-11-18] MEDS ORDERED: 50% Dextrose in Water 50 ML Syringe IVPUSH PRN (12:48)
[2020-11-18] MEDS ORDERED: Glucagon,Human Recombinant 1 MG Vial IM PRN (12:48)
[2020-11-18] MEDS: Insulin Regular, Human 100 Units/ML 3 ML Vial IVPUSH ONE (12:56)
[2020-11-18] MEDS: Sodium Chloride 0.9% 1,000 ML IV ONE (12:56)
--- NOTE | 2020-11-18 12:57 | EDM.PDOC ---
ED HPI GENERAL MEDICAL PROBLEM - General Chief Complaint: Neuro Symptoms/Deficits Stated Complaint: R SIDED WEAKNESS;SPEECH Time Seen by Provider: 11/18/20 12:40 Source of Information: Reports: Patient History Limitations: Reports: No Limitations - History of Present Illness INITIAL COMMENTS - FREE TEXT/NARRATIVE: Patient presents to the hospital for right sided weakness and slurred speech since he awoke at 7 am. Last known well was last night. He is an insulin dependent diabetic with renal issues, but states his glucose was normal yesterday. No recent illness or trauma. Since awakening he feels like the right side of his body is weak and his speech is slurrerd but he can talk. He did not check his blood glucose but thought his glucose may be low so he took an energy drink, milk and ate food. He then took his glucose and it read "high". He gave himself 15 units of insulin about 30 minutes prior to arrival. rare alcohol use, frequent marijuana use Onset: Unknown/Unsure Duration: Hour(s):, Constant Location: Reports: Upper Extremity, Right, Lower Extremity, Right Severity: Moderate Improves with: Reports: None Worsens with: Reports: None - Related Data Allergies Allergy/AdvReac Type Severity Reaction Status Date / Time amoxicillin Allergy unknown Verified 11/18/20 12:46 cefaclor [From Ceclor] Allergy Other Verified 11/18/20 12:46 insulin aspart Allergy Other Verified 11/18/20 12:46 [From Novolog U-100 Insulin aspart] insulin detemir Allergy Itching Verified 11/18/20 12:46 [From Levemir] Penicillins Allergy Cannot Verified 11/18/20 12:46 Remember Home Meds: Home Meds Insulin Lispro [Humalog Kwikpen U-100] 10 - 12 unit SUBCUT TIDMEALS 04/16/17 [History] Insulin Glarg,Human.Rec.Analog [Lantus Solostar] 40 units SUBCNJ BEDTIME 10/05/20 [History] Pantoprazole Sodium [Protonix] 40 mg PO BID 10/05/20 [History] carvediloL [Coreg] 6.25 mg PO BID 10/05/20 [History] Past Medical History HEENT History: Reports: Impaired Vision, Other (See Below) Other HEENT History: He wears glasses with no history of diabetic retinopathy. Nasal fracture 2 last in 2012. Cardiovascular History: Reports: Heart Murmur, High Cholesterol, Hypertension, Other (See Below) Other Cardiovascular History: Hyperlipidemia currently diet controlled; previous history of unknown type of heart murmur secondary to previous illicit drug use. Coincident Hypertension due to Diabetes. Respiratory History: Reports: Intubation, Previous, Other (See Below) Other Respiratory History: Pulmonary obstructive disease by previous chest x- rays with no current treatment Gastrointestinal History: Reports: Cholelithiasis, Gastritis, GERD, GI Bleed, Other (See Below) Other Gastrointestinal History: Esophageal tear in 2001 secondary to illness and alcohol abuse with NG tube therapy and Port-A-Cath needed however no other surgical procedures; history of elevated LFTs possibly secondary to fatty liver. Genitourinary History: Reports: Chronic Renal Insuffiency, Diabetic Nephropathy, Other (See Below) Other Genitourinary History: Proteinuria Musculoskeletal History: Reports: Fracture, Other (See Below) Other Musculoskeletal History: Nasal fractures as above. Neurological History: Reports: Seizure, Other (See Below) Other Neuro History: Apparent unknown type of seizure activity with hypoglycemic episodes. 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 with additional alcohol abuse during those ages with previous inpatient treatment at age 22; note current daily use of marijuana for his nausea? previous medical therapy for anxiety depression disorder but no current counseling at this time and only recent initiation of low-dose Zoloft therapy. 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 Hyponatremia. Hematologic History: Reports: None Immunologic History: Reports: None Oncologic (Cancer) History: Reports: None Dermatologic History: Reports: Other (See Below) Other Dermatologic History: Acne vulgarissevere including scarring - Infectious Disease History Infectious Disease History: Reports: Chicken Pox, Mononucleosis - Past Surgical History GI Surgical History: Reports: Cholecystectomy, EGD, Other (See Below) Other GI Surgeries/Procedures: Laparoscopic cholecystectomy in 2009 secondary to dysfunctional gallbladder from his diabetes; EGD secondary to esophageal tear in 2001 Male Surgical History: Reports: Circumcision, Other (See Below) Other Male Surgeries/Procedures: Circumcision as an - Past Imaging History Past Imaging History: Reports: CAT Scan (CT of the head on 04/13/18.) Social & Family History - Family History Family Medical History: No Pertinent Family History - Tobacco Use Tobacco Use Status *Q: Current Every Day Tobacco User - Caffeine Use Caffeine Use: Reports: Coffee (3 cups per day). Denies: Energy Drinks, Soda, Tea - Alcohol Use Alcohol Use History: Yes Alcohol Use Frequency: Rarely - Recreational Drug Use Recreational Drug Use: Yes Drug Use in Last 12 Months: Yes Recreational Drug Type: Reports: Marijuana/Hashish - Living Situation & Occupation Living situation: Reports: with Family (Son and daughter) Occupation: Employed ([employer]) ED ROS GENERAL - Review of Systems Review Of Systems: See Below Constitutional: Reports: Weakness HEENT: Denies: Eye Discharge, Eye Pain, Sinus Problem, Throat Swelling, Vertigo, Vision Change Respiratory: Reports: No Symptoms. Denies: Shortness of Breath, Cough Cardiovascular: Reports: No Symptoms. Denies: Chest Pain, Dyspnea on Exertion, Edema, Lightheadedness Endocrine: Reports: No Symptoms GI/Abdominal: Reports: No Symptoms. Denies: Abdominal Pain, Diarrhea, Nausea, Vomiting : Reports: No Symptoms Musculoskeletal: Reports: Other (right arm and leg weakness) Skin: Reports: No Symptoms Neurological: Reports: Trouble Speaking, Weakness Psychiatric: Reports: No Symptoms Hematologic/Lymphatic: Reports: No Symptoms Immunologic: Reports: No Symptoms ED EXAM, NEURO - Physical Exam Exam: See Below Exam Limited By: No Limitations General Appearance: Alert, No Apparent Distress Eye Exam: Bilateral Eye: EOMI, PERRL, Other (no nystagmus) Ears: Normal External Exam, Normal Canal, Normal TMs Nose: Normal Inspection, Normal Mucosa Throat/Mouth: Normal Inspection, Normal Lips, Normal Teeth, Normal Gums, Normal Oropharynx, Normal Voice Head Exam: Atraumatic, Normocephalic Neck: Normal Inspection, Supple, Non-Tender, Full Range of Motion Respiratory/Chest: No Respiratory Distress, Lungs Clear, Normal Breath Sounds, No Accessory Muscle Use, Chest Non-Tender. No: Respiratory Distress Cardiovascular: Normal Peripheral Pulses, Regular Rate, Rhythm, No Edema, No Murmur GI/Abdominal: Normal Bowel Sounds, Soft, Non-Tender, No Organomegaly, No Distention, No Mass (Male) Exam: Deferred Neurological: Alert, Normal Mood/Affect, Normal Dorsiflexion, CN II-XII Intact, Normal Plantar Flexion, Oriented x 3, Abnormal Light Touch (right hand and right foot), Other (normal finger to nose with eyes closed bilaterally, negative pronator drift. 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 NOrmal strength in the lower extremities, normal heel to [place]. Speech is mostly clear, but at times struggles with pronouncing words. ). No: Tremor Extremities: Normal Inspection, Normal Range of Motion, Non-Tender, No Pedal Edema Psychiatric: Normal Affect Skin Exam: Warm, Dry #1 Interpretation EKG Date: 11/18/20 Time: 12:31 Rhythm: NSR [place]: Normal QRS: Normal ST-T: Elevated (due to early repolarization) QT: Normal Comparison: NA - No Prior EKG Course - Orders/Labs/Meds Orders: Active Orders 24 hr Category Date Time Status Assess Neurological Status [RC] CONTINUOUS Care 11/18/20 12:39 Ordered Blood Glucose Check, Bedside [RC] STAT Care 11/18/20 12:39 Ordered Cardiac Monitoring [] CONTINUOUS Care 11/18/20 12:39 Ordered Communication Order [] STAT Care 11/18/20 12:39 Ordered Height and Weight [] UPON Care 11/18/20 12:39 Ordered NIH Stroke Scale [RC] Q15M Care 11/18/20 12:39 Ordered NIH Stroke Scale [RC] STAT Care 11/18/20 12:39 Ordered Nursing Bedside Swallow Screen [RC] STAT Care 11/18/20 12:39 Ordered Oxygen Therapy, ED [RC] ASDIRECTED Care 11/18/20 12:39 Ordered Vital Signs [RC] Q15M Care 11/18/20 12:39 Ordered Dextrose 50% in Water Med 11/18/20 12:48 Active 50 ml IVPUSH ASDIRECTED PRN Glucagon,Human Recombinant [GlucaGen] Med 11/18/20 12:48 Active 1 mg IM ASDIRECTED PRN Sodium Chloride 0.9% [Normal Saline] 1,000 ml Med 11/18/20 13:45 Ordered IV ASDIRECTED Sodium Chloride 0.9% [Saline Flush] Med 11/18/20 12:39 Active 10 ml FLUSH ASDIRECTED PRN Peripheral IV Insertion Adult [OM.PC] Stat Oth 11/18/20 12:39 Ordered Peripheral IV Insertion Adult [OM.PC] Stat Ot 11/18/20 12:39 Ordered Resuscitation Status Stat Resus Stat 11/18/20 12:39 Ordered Medication Orders Dextrose/Water (50% Dextrose In Water 50 Ml Syringe) 50 ml IVPUSH ASDIRECTED PRN PRN Reason: Hypoglycemia Glucagon (Glucagon,Human Recombinant 1 Mg Vial) 1 mg IM ASDIRECTED PRN PRN Reason: Hypoglycemia Sodium Chloride (Normal Saline) 1,000 mls @ 1,000 mls/hr IV ASDIRECTED JOSH Sodium Chloride (Sodium Chloride 0.9% 10 Ml Syringe) 10 ml FLUSH ASDIRECTED PRN PRN Reason: Keep Vein Open Labs: Laboratory Tests 11/18/20 11/18/20 11/18/20 Range/Units 12:28 12:43 12:43 WBC 11.2 H (4.0-10.0) x10^3/uL RBC 4.09 L (4.5-6.0) x10^6/uL Hgb 12.5 L D (14.0-18.0) g/dL Hct 35.7 L (40.0-52.0) % MCV 87.3 (78.0-93.0) fL MCH 30.6 (26.0-32.0) pg MCHC 35.0 (32.0-36.0) g/dL RDW Coeff of [place] 13.1 (10.0-15.0) % Plt Count 318 D (130-400) x10^3/uL Neut % (Auto) 73.6 (50.0-80.0) % Lymph % (Auto) 14.4 L (25.0-50.0) % Bureau % (Auto) 5.1 (2.0-11.0) % Eos % (Auto) 6.5 H (0.0-4.0) % Baso % (Auto) 0.4 (0.2-1.2) % PT 10.2 (9.9-12.5) SEC INR 0.9 L (2.0-3.5) APTT 29.0 (25.6-32.8) SEC VBG pH (7.33-7.43) pH VBG pCO2 (41-51) mmHG VBG pO2 mmHG VBG HCO3 (22-29) mmol/L VBG Total CO2 (23-30) mmol/L VBG O2 Saturation % VBG Base Excess ((-2)-3) mmol/L Sodium (136-145) mmol/L Potassium (3.5-5.1) mmol/L Chloride (98-107) mmol/L Carbon Dioxide (21-32) mmol/L Anion Gap (5-15) mmol/L BUN (7-18) mg/dL Creatinine (0.70-1.30) mg/dL Est Cr Clr Drug Dosing Estimated GFR (MDRD) Glucose (70-99) mg/dL POC Glucose > 503 H* (70-99) mg/dL Calcium (8.5-10.1) mg/dL Corrected Calcium (8.5-10.1) mg/dL Total Bilirubin (0.2-1.0) mg/dL AST (15-37) U/L ALT (16-63) U/L Alkaline Phosphatase (46-116) U/L Troponin I High Sens (<=76) ng/L Total Protein (6.4-8.2) g/dL Albumin (3.4-5.0) g/dL Globulin Albumin/Globulin Ratio Urine Color (YELLOW) Urine Appearance (CLEAR) Urine pH (5.0-8.0) Ur Specific [place] Urine Protein (NEGATIVE) mg/dL Urine Glucose (UA) (NEGATIVE) mg/dL Urine Ketones (NEGATIVE) mg/dL Urine Occult Blood (NEGATIVE) Urine Nitrite (NEGATIVE) Urine Bilirubin (NEGATIVE) Urine Urobilinogen (0.2) EU/dL Ur Leukocyte Esterase (NEGATIVE) Urine RBC (NOT SEEN) /HPF Urine WBC (NOT SEEN) /HPF Urine Bacteria (NOT SEEN) /HPF Urine Mucus (NOT SEEN) /LPF Urine Opiates Screen (NEAGTIVE) Ur Buprenorphine Scrn (NEGATIVE) Ur Oxycodone Screen (NEGATIVE) Urine Methadone Screen (NEGATIVE) Ur Barbiturates Screen (NEGATIVE) Ur Phencyclidine Scrn (NEGATIVE) Ur Amphetamine Screen (NEGATIVE) U Methamphetamines Scrn (NEGATIVE) Urine MDMA Screen (NEGATIVE) U Benzodiazepines Scrn (NEGATIVE) U Cocaine Metab Screen (NEGATIVE) U Marijuana (THC) Screen (NEGATIVE) Ethyl Alcohol (0-3) mg/dL 11/18/20 11/18/20 11/18/20 Range/Units 12:43 12:43 12:43 WBC (4.0-10.0) x10^3/uL RBC (4.5-6.0) x10^6/uL Hgb (14.0-18.0) g/dL Hct (40.0-52.0) % MCV (78.0-93.0) fL MCH (26.0-32.0) pg MCHC (32.0-36.0) g/dL RDW Coeff of [place]vy (10.0-15.0) % Plt Count (130-400) x10^3/uL Neut % (Auto) (50.0-80.0) % Lymph % (Auto) (25.0-50.0) % Bureau % (Auto) (2.0-11.0) % Eos % (Auto) (0.0-4.0) % Baso % (Auto) (0.2-1.2) % PT (9.9-12.5) SEC INR (2.0-3.5) APTT (25.6-32.8) SEC VBG pH 7.34 (7.33-7.43) pH VBG pCO2 42 (41-51) mmHG VBG pO2 38 mmHG VBG HCO3 22 (22-29) mmol/L VBG Total CO2 23 (23-30) mmol/L VBG O2 Saturation 69 % VBG Base Excess -3 L ((-2)-3) mmol/L Sodium 127 L* (136-145) mmol/L Potassium 5.0 D (3.5-5.1) mmol/L Chloride 94 L (98-107) mmol/L Carbon Dioxide 26 D (21-32) mmol/L Anion Gap 12.0 (5-15) mmol/L BUN 57 H (7-18) mg/dL Creatinine 3.9 H* (0.70-1.30) mg/dL Est Cr Clr Drug Dosing TNP Estimated GFR (MDRD) 17 Glucose 614 H* (70-99) mg/dL POC Glucose (70-99) mg/dL Calcium 8.8 (8.5-10.1) mg/dL Corrected Calcium 9.5 (8.5-10.1) mg/dL Total Bilirubin 0.2 (0.2-1.0) mg/dL AST 11 L (15-37) U/L ALT 7 L (16-63) U/L Alkaline Phosphatase 91 (46-116) U/L Troponin I High Sens 7 (<=76) ng/L Total Protein 7.2 (6.4-8.2) g/dL Albumin 3.1 L (3.4-5.0) g/dL Globulin 4.1 Albumin/Globulin Ratio 0.76 Urine Color (YELLOW) Urine Appearance (CLEAR) Urine pH (5.0-8.0) Ur Specific [place] Urine Protein (NEGATIVE) mg/dL Urine Glucose (UA) (NEGATIVE) mg/dL Urine Ketones (NEGATIVE) mg/dL Urine Occult Blood (NEGATIVE) Urine Nitrite (NEGATIVE) Urine Bilirubin (NEGATIVE) Urine Urobilinogen (0.2) EU/dL Ur Leukocyte Esterase (NEGATIVE) Urine RBC (NOT SEEN) /HPF Urine WBC (NOT SEEN) /HPF Urine Bacteria (NOT SEEN) /HPF Urine Mucus (NOT SEEN) /LPF Urine Opiates Screen (NEAGTIVE) Ur Buprenorphine Scrn (NEGATIVE) Ur Oxycodone Screen (NEGATIVE) Urine Methadone Screen (NEGATIVE) Ur Barbiturates Screen (NEGATIVE) Ur Phencyclidine Scrn (NEGATIVE) Ur Amphetamine Screen (NEGATIVE) U Methamphetamines Scrn (NEGATIVE) Urine MDMA Screen (NEGATIVE) U Benzodiazepines Scrn (NEGATIVE) U Cocaine Metab Screen (NEGATIVE) U Marijuana (THC) Screen (NEGATIVE) Ethyl Alcohol < 3 (0-3) mg/dL 11/18/20 11/18/20 11/18/20 Range/Units 13:00 13:00 13:33 WBC (4.0-10.0) x10^3/uL RBC (4.5-6.0) x10^6/uL Hgb (14.0-18.0) g/dL Hct (40.0-52.0) % MCV (78.0-93.0) fL MCH (26.0-32.0) pg MCHC (32.0-36.0) g/dL RDW Coeff of [place] (10.0-15.0) % Plt Count (130-400) x10^3/uL Neut % (Auto) (50.0-80.0) % Lymph % (Auto) (25.0-50.0) % Bureau % (Auto) (2.0-11.0) % Eos % (Auto) (0.0-4.0) % Baso % (Auto) (0.2-1.2) % PT (9.9-12.5) SEC INR (2.0-3.5) APTT (25.6-32.8) SEC VBG pH (7.33-7.43) pH VBG pCO2 (41-51) mmHG VBG pO2 mmHG VBG HCO3 (22-29) mmol/L VBG Total CO2 (23-30) mmol/L VBG O2 Saturation % VBG Base Excess ((-2)-3) mmol/L Sodium (136-145) mmol/L Potassium (3.5-5.1) mmol/L Chloride (98-107) mmol/L Carbon Dioxide (21-32) mmol/L Anion Gap (5-15) mmol/L BUN (7-18) mg/dL Creatinine (0.70-1.30) mg/dL Est Cr Clr Drug Dosing Estimated GFR (MDRD) Glucose (70-99) mg/dL POC Glucose 246 H (70-99) mg/dL Calcium (8.5-10.1) mg/dL Corrected Calcium (8.5-10.1) mg/dL Total Bilirubin (0.2-1.0) mg/dL AST (15-37) U/L ALT (16-63) U/L Alkaline Phosphatase (46-116) U/L Troponin I High Sens (<=76) ng/L Total Protein (6.4-8.2) g/dL Albumin (3.4-5.0) g/dL Globulin Albumin/Globulin Ratio Urine Color Yellow (YELLOW) Urine Appearance Clear (CLEAR) Urine pH 7.0 (5.0-8.0) Ur Specific [place] 1.020 Urine Protein >=300 H (NEGATIVE) mg/dL Urine Glucose (UA) 500 H (NEGATIVE) mg/dL Urine Ketones Negative (NEGATIVE) mg/dL Urine Occult Blood Trace-intact H (NEGATIVE) Urine Nitrite Negative (NEGATIVE) Urine Bilirubin Negative (NEGATIVE) Urine Urobilinogen 0.2 (0.2) EU/dL Ur Leukocyte Esterase Negative (NEGATIVE) Urine RBC 0-5 (NOT SEEN) /HPF Urine WBC 0-5 (NOT SEEN) /HPF Urine Bacteria Rare (NOT SEEN) /HPF Urine Mucus Rare H (NOT SEEN) /LPF Urine Opiates Screen Negative (NEAGTIVE) Ur Buprenorphine Scrn Negative (NEGATIVE) Ur Oxycodone Screen Negative (NEGATIVE) Urine Methadone Screen Negative (NEGATIVE) Ur Barbiturates Screen Negative (NEGATIVE) Ur Phencyclidine Scrn Negative (NEGATIVE) Ur Amphetamine Screen Negative (NEGATIVE) U Methamphetamines Scrn Negative (NEGATIVE) Urine MDMA Screen Negative (NEGATIVE) U Benzodiazepines Scrn Negative (NEGATIVE) U Cocaine Metab Screen Negative (NEGATIVE) U Marijuana (THC) Screen Positive H (NEGATIVE) Ethyl Alcohol (0-3) mg/dL Meds: Medications Generic Name Dose Route Start Last Admin Trade Name Freq PRN Reason Stop Dose Admin Dextrose/Water 50 ml 11/18/20 12:48 50% Dextrose In Water 50 Ml Syringe IVPUSH ASDIRECTED PRN Hypoglycemia Glucagon 1 mg 11/18/20 12:48 Glucagon,Human Recombinant 1 Mg Vial IM ASDIRECTED PRN Hypoglycemia Sodium Chloride 1,000 mls @ 1,000 mls/hr 11/18/20 13:45 Normal Saline IV ASDIRECTED JOSH Sodium Chloride 10 ml 11/18/20 12:39 Sodium Chloride 0.9% 10 Ml Syringe FLUSH ASDIRECTED PRN Keep Vein Open Discontinued Medications Generic Name Dose Route Start Last Admin Trade Name Fresamreen PRN Reason Stop Dose Admin Aspirin 81 mg 11/18/20 13:37 11/18/20 13:46 Aspirin 81 Mg Tab.Ec PO 11/18/20 13:38 81 mg ONETIME ONE Administration Clopidogrel Bisulfate 75 mg 11/18/20 13:38 11/18/20 13:46 Clopidogrel 75 Mg Tab PO 11/18/20 13:39 75 mg ONETIME ONE Administration Sodium Chloride 1,000 mls @ 999 mls/hr 11/18/20 12:41 11/18/20 12:56 Normal Saline IV 11/18/20 13:41 999 mls/hr ONETIME ONE Administration Insulin Human Regular 6 unit 11/18/20 12:48 11/18/20 12:56 Insulin Regular, Human 100 Units/Ml 3 Ml Vial IVPUSH 11/18/20 12:49 6 units ONETIME ONE Administration - Radiology Interpretation Free Text/Narrative:: negative head ct interpreted by Radiology - Re-Assessments/Exams Free Text/Narrative Re-Assessment/Exam: 11/18/20 13:05 Patient is in no distress. did take in a lot of calories and caused an elevated blood glucose. was 503 at arrival. Code stroke was called due to deficit. l ast known well yesterday. Will get ct head without contrast. Will give IV fluids and 6 units of insulin IV. Able to produce a urine. Unable to get serum ketones here. 11/18/20 13:26 corrected sodium is 135. Patient continues to have some slurred speech. Call to to discuss with Neurology, Dr. Recinos accepts for direct admission. Needs MRI 11/18/20 13:28 11/18/20 13:33 NOte, per [facility] creatinine is chronically 3.5, repeat blood glucose 245. Continues to have slurred speech 11/18/20 13:48 EMS contacted for trasnfer, Plavix 75 mg po and aspirin 81 mg po. Departure - Departure Time of Disposition: 13:45 Disposition: DC/Tfer to Acute Hospital 02 Condition: Fair Clinical Impression: Slurred speech, Hyperglycemia - Discharge Information *PRESCRIPTION DRUG MONITORING PROGRAM REVIEWED*: Not Applicable *COPY OF PRESCRIPTION DRUG MONITORING REPORT IN PATIENT OBED: Not Applicable Referrals: Sherly Gates NP [Primary Care Provider] - Forms: ED Department Discharge, Interfacility Transfer JESÚSALA - My Orders Last 24 Hours: My Active Orders 11/18/20 12:39 Assess Neurological Status [RC] CONTINUOUS Blood Glucose Check, Bedside [RC] STAT Cardiac Monitoring [RC] CONTINUOUS Communication Order [RC] STAT Height and Weight [RC] UPON NIH Stroke Scale [RC] Q15M NIH Stroke Scale [RC] STAT Nursing Bedside Swallow Screen [RC] STAT Oxygen Therapy, ED [RC] ASDIRECTED Vital Signs [RC] Q15M Sodium Chloride 0.9% [Saline Flush] 10 ml FLUSH ASDIRECTED PRN Peripheral IV Insertion Adult [OM.PC] Stat Peripheral IV Insertion Adult [OM.PC] Stat Resuscitation Status Stat 11/18/20 12:48 Dextrose 50% in Water 50 ml IVPUSH ASDIRECTED PRN Glucagon,Human Recombinant [GlucaGen] 1 mg IM ASDIRECTED PRN 11/18/20 13:45 Sodium Chloride 0.9% [Normal Saline] 1,000 ml IV ASDIRECTED - Assessment/Plan Last 24 Hours: My Active Orders 11/18/20 12:39 Assess Neurological Status [RC] CONTINUOUS Blood Glucose Check, Bedside [RC] STAT Cardiac Monitoring [RC] CONTINUOUS Communication Order [RC] STAT Height and Weight [RC] UPON NIH Stroke Scale [RC] Q15M NIH Stroke Scale [RC] STAT Nursing Bedside Swallow Screen [RC] STAT Oxygen Therapy, ED [RC] ASDIRECTED Vital Signs [RC] Q15M Sodium Chloride 0.9% [Saline Flush] 10 ml FLUSH ASDIRECTED PRN Peripheral IV Insertion Adult [OM.PC] Stat Peripheral IV Insertion Adult [OM.PC] Stat Resuscitation Status Stat 11/18/20 12:48 Dextrose 50% in Water 50 ml IVPUSH ASDIRECTED PRN Glucagon,Human Recombinant [GlucaGen] 1 mg IM ASDIRECTED PRN 11/18/20 13:45 Sodium Chloride 0.9% [Normal Saline] 1,000 ml IV ASDIRECTED
[2020-11-18 13:04] LABS: BASE EXCESS VENOUS -3 mmol/L ((-2)-3); BICARBONATE,VENOUS 22 mmol/L (22-29); O2 SATURATION VENOUS 69 %; PCO2 VENOUS 42 mmHG (41-51); PH,VENOUS 7.34 pH (7.33-7.43); PO2 VENOUS 38 mmHG
[2020-11-18 13:12] LABS: CHLORIDE,CL 94 mmol/L (98-107)
[2020-11-18 13:15] LABS: SODIUM,NA 127 mmol/L (136-145)
--- NOTE | 2020-11-18 13:18 | CT ---
[id number] CT/CT Head Stroke Protocol EXAM: NONCONTRAST HEAD CT INDICATION: ALTERED MENTAL STATUS - STROKE CODE. COMPARISON: None. DISCUSSION: The ventricles and sulci are normal in size and configuration. The cotto and white matter are normal in attenuation. No mass effect or midline shift. No acute hemorrhage or extra-axial fluid collection. No acute territorial infarct is identified. A limited look at the orbits and paranasal sinuses is unremarkable. IMPRESSION: 1. Negative exam. Fredo Mireles MD 11/18/20 0032 Thank you for allowing us to participate in the care of your patient.
[2020-11-18 13:42] LABS: BARBITURATE SCREEN,URINE NEGATIVE (NEGATIVE); BENZODIAZEPINES SCREEN,URINE NEGATIVE (NEGATIVE); METHAMPHETAMINE SCREEN, URINE NEGATIVE (NEGATIVE); THC SCREEN,URINE 50 NG/ML POSITIVE (NEGATIVE)
[2020-11-18] MEDS: Clopidogrel 75 MG Tab PO ONE (13:46)
[2020-11-18] MEDS: Aspirin 81 MG Tab.EC PO ONE (13:46)
[2020-11-18] MEDS: Sodium Chloride 0.9% 1,000 ML IV SCH (14:35)
== END 2020-11-18 14:38 | disposition short-term general hospital (02) ==
LOC: VM.ED 12:24
DX: R47.81 Slurred speech (principal); E10.65 Type 1 diabetes mellitus with hyperglycemia; Z72.0 Tobacco use; E78.00 Pure hypercholesterolemia, unspecified; I10 Essential (primary) hypertension; Z79.4 Long term (current) use of insulin; Z88.0 Allergy status to penicillin; Z88.8 Allergy status to other drugs, medicaments and biological substances
CPT/HCPCS: 70450; 80053; 80305-QW; 80307; 81001; 82803; 82947; 84484; 85025; 85610; 85730; 93010; 99284; 99285-25; A9270-GY; J1815-GY; J7030

== ENCOUNTER 2020-11-27 02:55 | Emergency (ER) | payer MEDICAID ==
[2020-11-27] MEDS ORDERED: Sodium Chloride 0.9% 10 ML Syringe FLUSH PRN (03:05)
--- NOTE | 2020-11-27 03:21 | EDM.PDOC ---
ED HPI GENERAL MEDICAL PROBLEM - General Stated Complaint: hypoglycemia, stroke like symptoms Time Seen by Provider: 11/27/20 03:00 Source of Information: Reports: Patient, EMS, Old Records History Limitations: Reports: No Limitations - History of Present Illness INITIAL COMMENTS - FREE TEXT/NARRATIVE: Patient is known to the author for recent CVA adn transfer. He is a type 1 diabetic that was recently brought in for slurred speech of unknown time frame. he was transferred on to [facility] for MRI. Patient states he was diagnosed with cva, placed on a blood thinner but is unsure of the name. Has been taking it. last night he was doing well, eating and drinking fine. No illness or trauma. States he took his regular dose of his long acting Insulin at 20:00 which was early and didn't eat anything. Went to bed around 12 am. He was not alone. at about 2 am this sleeping partner noted him acting strange and waving his left arm around erratically. EMS was called. At their arrival he was found to have a blood glucose of less than 30, an amp of dextrose was given. He did have a slight amount of left arm weakness per the ambulance. Speech was slurred and he was confused. last CVA was slurred speech with normal blood sugar and right arm numbness. . Stroke code was called at 2:55 am. arrival to the ED finds him improving without weakness, speech cleared. Onset: Sudden Onset Date: 11/27/20 Onset Time: 02:00 (roughly) Duration: Resolved Prior to Arrival Location: Reports: Upper Extremity, Left, Other (speech) Context: Reports: Other (was sleeping) Associated Symptoms: Reports: Confusion Treatments HOUSING CASE MANAGER: Reports: See EMS Report, Other (see below) (dextrose) - Related Data Allergies Allergy/AdvReac Type Severity Reaction Status Date / Time amoxicillin Allergy unknown Verified 11/18/20 12:46 cefaclor [From Ceclor] Allergy Other Verified 11/18/20 12:46 insulin aspart Allergy Other Verified 11/18/20 12:46 [From Novolog U-100 Insulin aspart] insulin detemir Allergy Itching Verified 11/18/20 12:46 [From Levemir] Penicillins Allergy Cannot Verified 11/18/20 12:46 Remember Home Meds: Home Meds Insulin Lispro [Humalog Kwikpen U-100] 10 - 12 unit SUBCUT TIDMEALS 04/16/17 [History] Insulin Glarg,Human.Rec.Analog [Lantus Solostar] 40 units SUBCNJ BEDTIME 10/05/20 [History] Pantoprazole Sodium [Protonix] 40 mg PO BID 10/05/20 [History] carvediloL [Coreg] 6.25 mg PO BID 10/05/20 [History] Aspirin [Halfprin] 81 mg PO DAILY 11/27/20 [History] Clopidogrel Bisulfate [Plavix] 75 mg PO 11/27/20 [History] Metoclopramide HCl [Reglan] 11/27/20 [History] atorvaSTATin [Lipitor] 80 mg PO 11/27/20 [History] Past Medical History HEENT History: Reports: Impaired Vision, Other (See Below) Other HEENT History: He wears glasses with no history of diabetic retinopathy. Nasal fracture 2 last in 2012. Cardiovascular History: Reports: Heart Murmur, High Cholesterol, Hypertension, Other (See Below) Other Cardiovascular History: Hyperlipidemia currently diet controlled; previous history of unknown type of heart murmur secondary to previous illicit drug use. Coincident Hypertension due to Diabetes. Respiratory History: Reports: Intubation, Previous, Other (See Below) Other Respiratory History: Pulmonary obstructive disease by previous chest x- rays with no current treatment Gastrointestinal History: Reports: Cholelithiasis, Gastritis, GERD, GI Bleed, Other (See Below) Other Gastrointestinal History: Esophageal tear in 2001 secondary to illness and alcohol abuse with NG tube therapy and Port-A-Cath needed however no other surgical procedures; history of elevated LFTs possibly secondary to fatty liver. Genitourinary History: Reports: Chronic Renal Insuffiency, Diabetic Nephropathy, Other (See Below) Other Genitourinary History: Proteinuria Musculoskeletal History: Reports: Fracture, Other (See Below) Other Musculoskeletal History: Nasal fractures as above. Neurological History: Reports: CVA (on blood thinners), Seizure, Other (See Below) Other Neuro History: Apparent unknown type of seizure activity with hypoglycemic episodes. 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 with additional alcohol abuse during those ages with previous inpatient treatment at age 22; note current daily use of marijuana for his nausea? previous medical therapy for anxiety depression disorder but no current counseling at this time and only recent initiation of low-dose Zoloft therapy. 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 Hyponatremia. Hematologic History: Reports: None Immunologic History: Reports: None Oncologic (Cancer) History: Reports: None Dermatologic History: Reports: Other (See Below) Other Dermatologic History: Acne vulgarissevere including scarring - Infectious Disease History Infectious Disease History: Reports: Chicken Pox, Mononucleosis - Past Surgical History GI Surgical History: Reports: Cholecystectomy, EGD, Other (See Below) Other GI Surgeries/Procedures: Laparoscopic cholecystectomy in 2009 secondary to dysfunctional gallbladder from his diabetes; EGD secondary to esophageal tear in 2001 Male Surgical History: Reports: Circumcision, Other (See Below) Other Male Surgeries/Procedures: Circumcision as an infant - Past Imaging History Past Imaging History: Reports: CAT Scan (CT of the head on 04/13/18.) - History Comment History Comment: echo cardiogram at 10/2020. normal ejection fraction of 63-70% mild concentric hypertrophy, no atrial septal defect or PFO. MRI/MRA on 11/19/20 revealed a perfusion defect in the left charly/ Ct head without contrast on 11/26/2020 reveals same area as a lacunar infarct of 7-8 mm. Social & Family History - Family History Family Medical History: No Pertinent Family History - Caffeine Use Caffeine Use: Reports: Coffee (3 cups per day). Denies: Energy Drinks, Soda, Tea - Living Situation & Occupation Living situation: Reports: with Family (Son and daughter) Occupation: Employed ([employer]) ED [facility] - Review of Systems Review Of Systems: See Below Constitutional: Reports: No Symptoms. Denies: Night Sweats, Diaphoresis, Decreased Appetite HEENT: Reports: No Symptoms. Denies: Sinus Problem, Throat Swelling Respiratory: Reports: No Symptoms. Denies: Shortness of Breath, Cough Cardiovascular: Reports: No Symptoms. Denies: Chest Pain, Dyspnea on Exertion GI/Abdominal: Reports: No Symptoms. Denies: Abdominal Pain, Hematochezia, Melena, Nausea : Reports: No Symptoms. Denies: Dysuria, Frequency, Urgency Musculoskeletal: Reports: Other (left arm weakness resolved). Denies: Neck Pain, Back Pain, Muscle Pain Skin: Reports: No Symptoms Neurological: Reports: Confusion (resolved), Change in Speech (slurred, resolved) Hematologic/Lymphatic: Reports: No Symptoms ED EXAM, NEURO - Physical Exam Exam: See Below (initially pleasant and cooperative) Exam Limited By: No Limitations General Appearance: Alert, WD/WN, No Apparent Distress Eye Exam: Bilateral Eye: EOMI, Normal Inspection, PERRL Ears: Normal External Exam, Normal Canal Nose: Normal Inspection, Normal Mucosa, No Blood Throat/Mouth: Normal Inspection, Normal Lips, Normal Teeth, Normal Oropharynx, Normal Voice Head Exam: Atraumatic, Normocephalic Neck: Normal Inspection, Supple, Full Range of Motion Respiratory/Chest: No Respiratory Distress, Lungs Clear, Normal Breath Sounds, No Accessory Muscle Use, Chest Non-Tender Cardiovascular: Normal Peripheral Pulses, Regular Rate, Rhythm, No Edema, No Murmur GI/Abdominal: Normal Bowel Sounds Neurological: Alert, Normal Mood/Affect (initially, significant mood swing when returned from CT to angry and abusive, agressive), Normal Dorsiflexion, CN II- XII Intact, Normal Plantar Flexion, Normal Gait, No Motor/Sensory Deficits, Oriented x 3 (normal finger to nose with eyes closed, normal rapidly alternating movements, normal combatant diver qualified strength upper extremities, normal sterngth lower extremities, normal speech, normal oppositon of thumb and pinky/index bilat, normal heel to [place]. normal sesnation) Back Exam: Normal Inspection, Full Range of Motion Extremities: Normal Inspection, Normal Range of Motion, Non-Tender, No Pedal Edema, Normal Capillary Refill (full rom of movement, strength normal bilate rally, normal extention and flexion of the wrists bilaterally) #1 Interpretation EKG Date: 11/27/20 Time: 03:03 Rhythm: NSR Rate (Beats/Min): 79 [place]: Normal P-Wave: Present QRS: Normal ST-T: Normal QT: Normal Comparison: No Change Course - Orders/Labs/Meds Orders: Active Orders 24 hr Category Date Time Status Head wo Cont [CT] Stat Exams 11/27/20 03:05 Taken Peripheral IV Insertion Adult [OM.PC] Stat Oth 11/27/20 03:05 Ordered Peripheral IV Insertion Adult [OM.PC] Stat Oth 11/27/20 03:05 Ordered Resuscitation Status Stat Resus Stat 11/27/20 03:05 Ordered Labs: Laboratory Tests 11/27/20 11/27/20 11/27/20 Range/Units 03:01 03:20 03:20 WBC 14.1 H (4.0-10.0) x10^3/uL RBC 3.86 L (4.5-6.0) x10^6/uL Hgb 11.8 L (14.0-18.0) g/dL Hct 33.3 L (40.0-52.0) % MCV 86.3 (78.0-93.0) fL MCH 30.6 (26.0-32.0) pg MCHC 35.4 (32.0-36.0) g/dL RDW Coeff of Chevy 13.5 (10.0-15.0) % Plt Count 299 (130-400) x10^3/uL Add Manual Diff Yes Neutrophils % (Manual) 71 (50-80) % Band Neutrophils % 7 H (0-6) % Lymphocytes % (Manual) 7 L (25-50) % Monocytes % (Manual) 8 (2-11) % Eosinophils % (Manual) 7 H (0-4) % Platelet Estimate Adequate PT 9.8 L (9.9-12.5) SEC INR 0.9 L (2.0-3.5) APTT 28.7 (25.6-32.8) SEC Sodium (136-145) mmol/L Potassium (3.5-5.1) mmol/L Chloride (98-107) mmol/L Carbon Dioxide (21-32) mmol/L Anion Gap (5-15) mmol/L BUN (7-18) mg/dL Creatinine (0.70-1.30) mg/dL Est Cr Clr Drug Dosing mL/min Estimated GFR (MDRD) Glucose (70-99) mg/dL POC Glucose 171 H (70-99) mg/dL Calcium (8.5-10.1) mg/dL Corrected Calcium (8.5-10.1) mg/dL Total Bilirubin (0.2-1.0) mg/dL AST (15-37) U/L ALT (16-63) U/L Alkaline Phosphatase (46-116) U/L Troponin I High Sens (<=76) ng/L Total Protein (6.4-8.2) g/dL Albumin (3.4-5.0) g/dL Globulin Albumin/Globulin Ratio // Range/Units 03:20 WBC (4.0-10.0) x10^3/uL RBC (4.5-6.0) x10^6/uL Hgb (14.0-18.0) g/dL Hct (40.0-52.0) % MCV (78.0-93.0) fL MCH (26.0-32.0) pg MCHC (32.0-36.0) g/dL RDW Coeff of [place]vy (10.0-15.0) % Plt Count (130-400) x10^3/uL Add Manual Diff Neutrophils % (Manual) (50-80) % Band Neutrophils % (0-6) % Lymphocytes % (Manual) (25-50) % Monocytes % (Manual) (2-11) % Eosinophils % (Manual) (0-4) % Platelet Estimate PT (9.9-12.5) SEC INR (2.0-3.5) APTT (25.6-32.8) SEC Sodium 134 L (136-145) mmol/L Potassium 4.4 (3.5-5.1) mmol/L Chloride 100 (98-107) mmol/L Carbon Dioxide 22 (21-32) mmol/L Anion Gap 16.4 H (5-15) mmol/L BUN 59 H (7-18) mg/dL Creatinine 3.3 H* (0.70-1.30) mg/dL Est Cr Clr Drug Dosing 28.23 mL/min Estimated GFR (MDRD) 21 Glucose 117 H (70-99) mg/dL POC Glucose (70-99) mg/dL Calcium 8.2 L (8.5-10.1) mg/dL Corrected Calcium 9.1 (8.5-10.1) mg/dL Total Bilirubin 0.2 (0.2-1.0) mg/dL AST 22 (15-37) U/L ALT 30 (16-63) U/L Alkaline Phosphatase 85 (46-116) U/L Troponin I High Sens 8 (<=76) ng/L Total Protein 6.6 (6.4-8.2) g/dL Albumin 2.9 L (3.4-5.0) g/dL Globulin 3.7 Albumin/Globulin Ratio 0.78 Meds: Medications Discontinued Medications Generic Name Dose Route Start Last Admin Trade Name Dion PRN Reason Stop Dose Admin Sodium Chloride 10 ml 11/27/20 03:05 Sodium Chloride 0.9% 10 Ml Syringe FLUSH ASDIRECTED PRN Keep Vein Open - Radiology Interpretation Free Text/Narrative:: non contrast head CT with new acute lacunar infarct in the left aspect of the charly, 7-8 mm, when compared to head ct on 11/18/2020. interpreted and discussed with radiology - Re-Assessments/Exams Free Text/Narrative Re-Assessment/Exam: 11/27/20 03:[address] EKG and blood glucose done prior to CT. patient is angry, wants to go home, states he didn't come in for stroke symptoms, just for low blood glucose. Wants to leave AMA, try to discuss with patient about the needs for appropriate work up due to recent CVA, on a blood thinner. glucose at arrival was 147. Labs have been drawn. 11/27/20 03:38 at this time patient is yelling and screaming, stating he has rights and makes his own medical decisions. Displays capacity and no deficits. Blood glucose was normal. Verbally abusive to author and staff. Attempted to discuss with patient the concern for stroke. He is argumentative and states he does not care about stroke, that he was here for low glucose and " you didn't do anything for it". Attempted to ask what his MRI showed in regards to stroke on 11/18. He does not know and " does not care". Continues to scream and swear at author and staff. Tells staff to remove iv and is walking home. AMA form presented to patient , signed with a verbal abusive phrase on the sheet. Ambulated out of the department without deficits, without shoes to walk home. normal gait and speech. multiple attempts to calm the patient, discuss concerns for ct findings and need to complete work up and treatment. Patient is his own POA and displays capacity and no deficits at time of leaving. 11/27/20 03:[address] results with radiology, unable to tell if the lacunar infarct is new today or 2 weeks ago. They are unable to tell. Patient again has no deficits and is resolved. Acute infarct seen on CT is probable from two weeks ago. [facility] to [facility] where he was transferred for MRI report and name of blood thinner for comparison and future reference. 11/27/20 04:07 creatinine is always elevated, CKD, unknown leukocytosis but history of. . abnormal behavior is concerning for possible drug ingestion. etoh and drug screen note done. 11/27/20 04:13 records received. echocardiogram with ejection fraction of 63-70%, mild concentric hypertropyhy right ventricular systolic function, no atrial septal defect or PFO. MRI/MRA revealed a restricted diffusion in the left charly per providers report, actual MRI report not sent.. This correlates to the area seen today on CT. Not new since then. Was started on aspirin and Plavix and atorvastin, this was to continue for 8 weeks and then he can switch to aspirin only 11/27/20 07:40 Departure - Departure Time of Disposition: 03:40 Disposition: Against Medical Advice 07 Condition: Fair Clinical Impression: Slurred speech, Hypoglycemia, CVA (cerebral vascular accident) CKD (chronic kidney disease) Qualifiers: Chronic kidney disease stage: unspecified stage Qualified Code(s): N18.9 - Chronic kidney disease, unspecified - Discharge Information *PRESCRIPTION DRUG MONITORING PROGRAM REVIEWED*: Not Applicable *COPY OF PRESCRIPTION DRUG MONITORING REPORT IN PATIENT OBED: Not Applicable Referrals: PCP,None [Ordering Only Provider] - Forms: ED Department Discharge Additional Instructions: You chose to leave against medical advise after being verbally abusive with staff and before return of medical evaluation. You displayed no deficits at time of leaving against medical advise and refused care. - My Orders Last 24 Hours: My Active Orders 11/27/20 03:05 Head wo Cont [CT] Stat Peripheral IV Insertion Adult [OM.PC] Stat Peripheral IV Insertion Adult [OM.PC] Stat Resuscitation Status Stat - Assessment/Plan Last 24 Hours: My Active Orders 11/27/20 03:05 Head wo Cont [CT] Stat Peripheral IV Insertion Adult [OM.PC] Stat Peripheral IV Insertion Adult [OM.PC] Stat Resuscitation Status Stat
[2020-11-27 03:50] LABS: PTT,PARTIAL THROMBOPLSTIN TIME 28.7 SEC (25.6-32.8)
[2020-11-27 03:52] LABS: ANION GAP 16.4 mmol/L (5-15)
--- NOTE | 2020-11-27 08:20 | CT ---
[id number] CT/CT Head WO IV EXAM: CT Head WO IV CLINICAL DATA: LEFT SIDED DEFICIT, SPEECH PROBLEMS, CVA COMPARISON STUDY: November 18, 2020. FINDINGS: Lacunar infarct in the charly left of midline measuring approximately 7 x 9 x 10 mm. This was not seen previously. Appearance on today's examination is consistent with subacute finding. No other areas of infarction identified. No acute intracranial hemorrhage or extra-axial fluid collection. Calvarium intact. Paranasal sinuses and mastoid air cells are clear. IMPRESSION: Lacunar infarction in the charly left of midline not seen on examination from November 18, 2020. Basil Estrada MD 11/27/20 0819 Thank you for allowing us to participate in the care of your patient.
== END 2020-11-27 03:40 | disposition left against medical advice (07) ==
LOC: VM.ED 02:55
DX: I63.9 Cerebral infarction, unspecified (principal); I12.9 Hypertensive chronic kidney disease with stage 1 through stage 4 chronic kidney disease, or unspecified chronic kidney disease; E11.22 Type 2 diabetes mellitus with diabetic chronic kidney disease; N18.9 Chronic kidney disease, unspecified; E11.649 Type 2 diabetes mellitus with hypoglycemia without coma; E78.00 Pure hypercholesterolemia, unspecified; K21.9 Gastro-esophageal reflux disease without esophagitis; E11.21 Type 2 diabetes mellitus with diabetic nephropathy; Z79.82 Long term (current) use of aspirin; Z79.02 Long term (current) use of antithrombotics/antiplatelets; Z79.4 Long term (current) use of insulin; Z79.899 Other long term (current) drug therapy; Z88.0 Allergy status to penicillin; Z88.1 Allergy status to other antibiotic agents; Z88.8 Allergy status to other drugs, medicaments and biological substances
CPT/HCPCS: 36415; 70450; 80053; 82947; 84484; 85025; 85610; 85730; 93010; 99284; 99285-25

== ENCOUNTER 2021-08-29 11:49 | Emergency (ER) | payer MEDICAID ==
[2021-08-29] MEDS: Ondansetron 8 MG in Sodium Chloride 0.9% 100 ML IV ONE ×4 (12:28→16:50)
[2021-08-29 12:34] LABS: CHLORIDE,CL 98 mmol/L (98-107); SODIUM,NA 136 mmol/L (136-145)
[2021-08-29 12:37] LABS: ANION GAP 12.8 mmol/L (5-15)
[2021-08-29] MEDS: Dicyclomine 20 MG/2 ML SDV IM ONE (12:50)
[2021-08-29] MEDS: Promethazine 25 MG/ML SDV IM ONE ×2 (12:51→19:20)
[2021-08-29] MEDS: Carvedilol 12.5 MG Tab PO ONE (14:08)
[2021-08-29] MEDS: Metoclopramide 10 MG/2 ML SDV IVPUSH ONE (14:08)
[2021-08-29] MEDS: Sodium Chloride 0.9% 1,000 ML IV ONE (14:09)
[2021-08-29] MEDS: Ondansetron 4 MG/2 ML SDV IVPUSH ONE (15:15)
[2021-08-29] MEDS: Metoprolol Tartrate 5 MG/5 ML SDV IVPUSH ONE ×2 (16:49→18:16)
[2021-08-29] MEDS ORDERED: 50% Dextrose in Water 50 ML Syringe IVPUSH PRN (16:56)
[2021-08-29] MEDS ORDERED: Glucagon,Human Recombinant 1 MG Vial IM PRN (16:56)
[2021-08-29] MEDS: Insulin Regular, Human 100 Units/ML 3 ML Vial SUBCUT ONE (18:15)
[2021-08-29] MEDS: Take Home: Ondansetron 4 MG Tab.DIS, 5 Tab Pack PO ONE (19:24)
[2021-08-29] MEDS: Take Home: Promethazine 25 MG, 4 Tab Pack PO ONE (19:24)
[2021-08-29 19:28] LABS: BUPRENORPHINE,URINE NEGATIVE (NEGATIVE); MARIJUANA,URINE POSITIVE (NEGATIVE); METHYLENEDIOXYMETHAMP,UR NEGATIVE (NEGATIVE); PHENCYCLIDINE,URINE NEGATIVE (NEGATIVE)
== END 2021-08-29 19:36 | disposition home or self-care (01) ==
LOC: VM.ED 11:49
DX: R11.2 Nausea with vomiting, unspecified (principal); F19.10 Other psychoactive substance abuse, uncomplicated; E10.22 Type 1 diabetes mellitus with diabetic chronic kidney disease; I12.9 Hypertensive chronic kidney disease with stage 1 through stage 4 chronic kidney disease, or unspecified chronic kidney disease; N18.9 Chronic kidney disease, unspecified; K21.9 Gastro-esophageal reflux disease without esophagitis; Z99.2 Dependence on renal dialysis; Z86.73 Personal history of transient ischemic attack (TIA), and cerebral infarction without residual deficits; Z79.4 Long term (current) use of insulin; Z79.82 Long term (current) use of aspirin; Z79.899 Other long term (current) drug therapy; Z88.0 Allergy status to penicillin; Z88.8 Allergy status to other drugs, medicaments and biological substances
CPT/HCPCS: 36415; 80048; 80305-QW; 81001; 82010; 85025; 96372; 96374; 96375; 96376; 99284; 99284-25; A9270-GY; J0500; J1815-GY; J2405; J2550; J2765; J3490; J7030; Q0162

== ENCOUNTER 2022-01-14 17:47 | Emergency (ER) | payer MEDICARE, MEDICAID ==
[2022-01-14] MEDS ORDERED: Ondansetron 4 MG/2 ML SDV IVPUSH ONE (18:07)
[2022-01-14] MEDS ORDERED: Sodium Chloride 0.9% 1,000 ML IV SCH (18:15)
[2022-01-14 18:19] LABS: CHLORIDE,CL 99 mmol/L (98-107); SODIUM,NA 137 mmol/L (136-145)
[2022-01-14 18:21] LABS: ESTIMATED GFR 12 mL/min (>=60)
[2022-01-14] MEDS ORDERED: fentaNYL 50 MCG/ML SDV IVPUSH ONE (18:43)
[2022-01-14] MEDS ORDERED: metroNIDAZOLE/Normal Saline 500 MG in Premix Bag 1 BAG IV ONE (19:56)
[2022-01-14] MEDS ORDERED: Levofloxacin/Dextrose 5%-Water 250 MG in Premix Bag 1 BAG IV ONE (19:57)
[2022-01-14] MEDS ORDERED: methylPREDNISolone Sodium Succinate 125 MG/2 ML SDV IVPUSH ONE (19:58)
[2022-01-14] MEDS ORDERED: Take Home: Levofloxacin 500 MG Tab, 1 Tab Pack PO ONE (20:24)
[2022-01-14] MEDS ORDERED: Take Home: metroNIDAZOLE 500 MG Tab, 4 Tab Pack PO ONE (20:24)
[2022-01-14] MEDS ORDERED: Take Home: Ondansetron 4 MG Tab.DIS, 5 Tab Pack PO ONE (20:25)
== END 2022-01-14 20:40 | disposition home or self-care (01) ==
LOC: VM.ED 17:47
DX: K51.30 Ulcerative (chronic) rectosigmoiditis without complications (principal); E78.00 Pure hypercholesterolemia, unspecified; I10 Essential (primary) hypertension; E10.21 Type 1 diabetes mellitus with diabetic nephropathy; E10.22 Type 1 diabetes mellitus with diabetic chronic kidney disease; N18.9 Chronic kidney disease, unspecified; K21.9 Gastro-esophageal reflux disease without esophagitis; F17.210 Nicotine dependence, cigarettes, uncomplicated; Z86.73 Personal history of transient ischemic attack (TIA), and cerebral infarction without residual deficits; Z88.0 Allergy status to penicillin; Z88.1 Allergy status to other antibiotic agents; Z88.8 Allergy status to other drugs, medicaments and biological substances; Z79.82 Long term (current) use of aspirin; Z79.02 Long term (current) use of antithrombotics/antiplatelets; Z79.4 Long term (current) use of insulin; Z79.899 Other long term (current) drug therapy
CPT/HCPCS: 36415; 74176; 80053; 81001; 82150; 82947; 83605; 83690; 85025; 86140; 96374; 96375; 99284; 99284-25; A9270-GY; J1956; J2405; J2930; J3010; J7030; Q0162

== ENCOUNTER 2023-05-04 10:20 | Emergency (ER) | payer MEDICARE, MEDICAID ==
[2023-05-04] MEDS ORDERED: Iopamidol 612 MG/ML 100 ML Bottle IVPUSH ONE (10:46)
[2023-05-04 10:55] LABS: BASOPHILS ABSOLUTE AUTO 0.1 x10^3/uL (0.0-0.2); BASOPHILS PERCENT AUTO 0.7 % (0.2-1.2); EOSINOPHILS ABSOLUTE AUTO 0.3 x10^3/uL (0.0-0.5); EOSINOPHILS PERCENT AUTO 3.7 % (0.0-4.0); HEMATOCRIT 32.4 % (40.0-52.0); HEMOGLOBIN 10.7 g/dL (14.0-18.0); LYMPHOCYTES ABSOLUTE AUTO 1.2 x10^3/uL (1.0-4.8); LYMPHOCYTES PERCENT AUTO 13.2 % (25.0-50.0); MEAN CORPUSCULAR HEMOGLOBIN 30.7 pg (26.0-32.0); MEAN CORPUSCULAR VOLUME 92.8 fL (78.0-93.0); MONOCYTES ABSOLUTE AUTO 0.8 x10^3/uL (0.0-0.8); MONOCYTES PERCENT AUTO 8.6 % (2.0-11.0); NEUTROPHILS ABSOLUTE AUTO 6.8 x10^3/uL (1.8-7.7); NEUTROPHILS PERCENT AUTO 73.8 % (50.0-80.0); PLATELET COUNT,PLT 289 x10^3/uL (130-400); RED BLOOD CELL COUNT 3.49 x10^6/uL (4.5-6.0); WHITE BLOOD CELL COUNT,WBC 9.2 x10^3/uL (4.0-10.0)
[2023-05-04 11:15] LABS: A/G RATIO 0.92; ALANINE AMINOTRANSFERASE,ALT 31 U/L (16-63); ALBUMIN 3.5 g/dL (3.4-5.0); ALKALINE PHOSPHATASE 97 U/L (46-116); ANION GAP 12.3 mmol/L (5-15); ASPARTATE AMNIOTRANSFERASE,AST 25 U/L (15-37); BILIRUBIN TOTAL 0.5 mg/dL (0.2-1.0); BLOOD UREA NITROGEN,BUN 20 mg/dL (7-18); C-REACTIVE PROTEIN < 0.50 mg/dL (<=0.50); CALCIUM 10.1 mg/dL (8.5-10.1); CARBON DIOXIDE,CO2 35 mmol/L (21-32); CHLORIDE,CL 97 mmol/L (98-107); EST CRCL DRUG DOSING (CG) 17.64 mL/min; ESTIMATED GFR 14 mL/min (>=60); GLUCOSE RANDOM 120 mg/dL (70-99); POTASSIUM,K 4.3 mmol/L (3.5-5.1); PROTEIN TOTAL,TP 7.3 g/dL (6.4-8.2); SODIUM,NA 140 mmol/L (136-145)
[2023-05-04] MEDS ORDERED: Clindamycin Phosphate in D5W 600 MG in Premix Bag 1 BAG IV ONE ×2 (11:33)
== END 2023-05-04 12:45 | disposition home or self-care (01) ==
LOC: VM.ED 10:20
DX: L03.211 Cellulitis of face (principal); K21.9 Gastro-esophageal reflux disease without esophagitis; E10.22 Type 1 diabetes mellitus with diabetic chronic kidney disease; I12.9 Hypertensive chronic kidney disease with stage 1 through stage 4 chronic kidney disease, or unspecified chronic kidney disease; N18.9 Chronic kidney disease, unspecified; E78.00 Pure hypercholesterolemia, unspecified; Z88.0 Allergy status to penicillin; Z79.899 Other long term (current) drug therapy; Z79.82 Long term (current) use of aspirin; Z79.4 Long term (current) use of insulin; Z88.8 Allergy status to other drugs, medicaments and biological substances; Z72.0 Tobacco use
CPT/HCPCS: 70486; 80053; 85025; 86140; 96365; 99284; 99284-25; J3490